=== PATIENT | female | born 1950 | race Caucasian/White ===

== ENCOUNTER 2017-12-04 23:25 | Emergency (ER) | payer MEDICARE, MEDICAID, SELFPAY ==
[2017-12-04 23:27] VITALS: BP 126/64; PULSE 73; RESP 15; TEMP 36.7; O2SAT 96; BMI 20.5
--- NOTE | 2017-12-04 23:40 | ED.DCSUM_ITS ---
History of Present Illness Chief Complaint: Back Informant: Patient Onset: Today Context: Gradual Onset Timing: Intermittent Quality: spasms Location: across low back Current Severity: Mild Maximum Severity: Severe Worsened by: bending over, certain movements Relieved by: rest/remaining still and waiting long enough, but not improved by meds Associated Symptoms: none -- no rad to LE, groin, abd. no weak/numbness/ tingling. no dizziness. Narrative: Long-standing history of back pain and degenerative changes in spine, similar pain to usual but worse and having muscle spasms. She states she has been doing a lot of activities lately, today before the worsening, she was lifting a heavy green out of an oven, making dinner. This seemed to make her back lock up on her and feel like muscle spasms. She took a Valium 5 mg but it did not help. Earlier in the day she took Tylenol, and some Tylenol PM tonight. She states she was at the chiropractor yesterday, they were more aggressive, doing rollers under her low back and her neck which she was also doing today. No new symptoms that she has never had. Prior similar symptoms: Yes Recent Illness/Hospitalization: No - Past Medical History (1) Chronic low back pain Status: Chronic Past Medical History - Allergies and Home Meds Allergies/Adverse Reactions: Allergies acetaminophen [From Vicodin] Adverse Reaction (Verified 12/04/17 23:27) Other hydrocodone [From Vicodin] Adverse Reaction (Verified 12/04/17 23:27) Other morphine Adverse Reaction (Verified 12/04/17 23:27) Other Primary Care Physician: Lyubov An MD [Primary Care Provider] - 3-5 Days if not improving Surgical History: - - arthroscopic surgery on the knee, tubal ligation Lives: Alone Smoking Status: Current some day smoker - Family History Maternal Family History: Reports: Cancer - mother of ovarian CA Review of Systems All systems negative except as indicated Gastrointestinal: Denies: Abdominal pain, Nausea, Vomiting, Diarrhea, - - bowel or bladder dysfunction Musculoskeletal: Reports: Back pain. Denies: Neck pain, Extremity Pain Skin: Denies: Rash Neurological: Denies: Headache, Weakness, Parasthesia, Numbness Physical Exam Vital Signs/Narrative: Vital Signs Temp Pulse Resp BP Pulse Ox 12/04/17 23:27 98.1 F 73 15 126/64 H 96 Inital Vital Signs reviewed: Yes General: Well nourished, Well developed, - - well-appearing, nad Head: Normocephalic, Atraumatic ENT: Moist mucous membranes, No rhinorrhea Neck: Supple, Nontender Cardiovascular: - - 2+/4 bilat symmetric DP pulses Abdomen: Soft, Nontender, Nondistended, Normal bowel sounds. Negative for: Pulsatile mass Back: Nontender, Normal Inspection - no rash, - - able to sit up/forward on her own w/o difficulty; some increased pain when she laid back against bed. Negative for: CVA tenderness, Spinal tenderness Extremities: Nontender - w/ negative SLR's while sitting, No edema Skin: Normal color, No rash Neurological: Alert, Oriented x3, Cranial nerves II-XII grossly intact, Normal Strength, Normal Sensation, Normal DTR Psychological: Normal affect Diagnostic/Tx/Re-eval - Medical Decision Making Her symptoms are clearly musculoskeletal in nature. She was initially given Toradol 15 mg IM along with Norflex 60 mg IM, she was still having intermittent spasms when she would try to get up so she was asking for something else. She was given Ativan 2 mg IM and on reevaluation things are improved. Follow-up as needed. ED Disposition - Plan for ED Patient: Disposition: Home or Assisted Living Chief Complaint: Back Diagnosis: Acute exacerbation of chronic low back pain Instructions: ED Spasm Back No Trauma Referrals: Lyubov An MD [Primary Care Provider] - 3-5 Days if not improving
[2017-12-04] MEDS: Orphenadrine 60 MG/2 ML Ampul IM (23:49)
[2017-12-04] MEDS: Ketorolac 15 MG/ML Vial IM (23:49)
[2017-12-05] MEDS: LORazepam 2 MG/ML Syringe IM (00:56)
[2017-12-05 01:24] VITALS: BP 121/72; PULSE 71; RESP 18; O2SAT 97
== END 2017-12-05 01:31 | disposition home or self-care (01) ==
PROVIDERS: Emergency Provider Emergency Medicine; Family Provider Internal Medicine; PCP Internal Medicine
DX: M54.5 Low back pain (principal); G89.29 Other chronic pain; F17.200 Nicotine dependence, unspecified, uncomplicated
CPT/HCPCS: 96372; 99284

== ENCOUNTER 2019-12-25 07:06 | Emergency (ER) | payer MEDICARE, SELFPAY ==
[2019-12-25 07:06] VITALS: BP 143/102; PULSE 104; RESP 18; TEMP 35.5; O2SAT 99; BMI 18.2
--- NOTE | 2019-12-25 07:29 | RAD_ITS ---
STUDY: X-RAY - RIGHT WRIST REASON FOR EXAM: Female, 69 years old. Pt fell in the bathtub TECHNIQUE: 3 view(s) of the wrist were obtained. COMPARISON: None. FINDINGS: There is diffuse demineralization of the osseous structures. Normal radiocarpal articulation. Normal distal radioulnar articulation. Normal carpal bones. Normal carpal articulations. Small calcific density distal to the ulnar styloid could be due to old injury. Normal carpometacarpal articulation of the thumb. Normal second through fifth carpometacarpal articulations. Normal visualized metacarpal bones. The soft tissue structures are unremarkable. RAD/Wrist min 3 Views IMPRESSION: Demineralization of the osseous structures. No demonstrated acute osseous injury. Electronically Signed: Senthil Reeves MD at 9:09 EDT Tel , Service support ,
--- NOTE | 2019-12-25 07:29 | RAD_ITS ---
STUDY: X-RAY - RIGHT KNEE REASON FOR EXAM: Female, 69 years old. Pt fell in the bathtub TECHNIQUE: 4 view(s) of the knee. COMPARISON: None. FINDINGS: There is demineralization of the visualized distal femur. There is demineralization of the tibia and fibula. Normal proximal tibiofibular articulation. There is no demonstrated fracture. Sclerotic lesion is seen in the distal femur likely due to bone infarcts. Normal medial femorotibial compartment. Normal lateral femorotibial compartment. There is mild degenerative arthrosis of the patellofemoral articulation. There is no demonstrated joint effusion. There is soft tissue swelling superior patella. RAD/Knee 4 or More Views IMPRESSION: Demineralization of the osseous structures. No demonstrated acute osseous injury. Electronically Signed: Senthil Reeves MD at 9:07 EDT Tel , Service support ,
--- NOTE | 2019-12-25 07:34 | ED.VIS.FALL ---
History of Present Illness Chief Complaint: Fall Informant: Patient Occurred: Today Mechanism/Context: Slip Usually ambulates: Walker Associated Symptoms: Negative for: Parasthesias, Loss of function, Inability to ambulate, Loss of consciousness Narrative: Patient is a 69 year-old female with history of chronic back pain presenting with right wrist pain after a fall. Patient was trying to get into a bathtub when she slipped. She try to catch herself with her right hand and now has pain in her right wrist. She states that she is had increased swelling of her right knee lately and it is been giving out on her. Patient is chronic lower extremity edema which is unchanged. She has associated shortness of breath or difficulty breathing. Patient denies any numbness or tingling. She denies any difficulty with oncology physician assistant strength of her hand. She not hit her head. She had no loss of consciousness. Past Medical History - Allergies and Home Meds Allergies/Adverse Reactions: Allergies acetaminophen [From Vicodin] Adverse Reaction (Verified 12/25/19 07:09) Other hydrocodone [From Vicodin] Adverse Reaction (Verified 12/25/19 07:09) Other morphine Adverse Reaction (Verified 12/25/19 07:09) Other Primary Care Physician: Lyubov An MD [Primary Care Provider] - Past Medical History: - - chronic back pain Surgical History: - - arthroscopic surgery on the knee, tubal ligation Lives: Alone Smoking Status: Current some day smoker - Family History Maternal Family History: Reports: Cancer - mother of ovarian CA Review of Systems General: Denies: Chills, Fever, Sweats Eyes: Denies: Visual changes - bilaterally, Diplopia ENT: Denies: Rhinorrhea, Sore throat Cardiovascular: Denies: Chest pain, Palpitations Respiratory: Denies: Dyspnea, Cough, Dyspnea on exertion Gastrointestinal: Denies: Abdominal pain, Nausea, Vomiting, Diarrhea, Melena, Hematochezia Genitourinary: Denies: Dysuria, Hematuria, Frequency Musculoskeletal: Reports: Back pain - chronic, Swelling, Extremity Pain - right wrist, right knee Skin: Denies: Rash, Wounds Neurological: Denies: Headache, Weakness, Numbness Physical Exam Vital Signs/Narrative: Vital Signs Temp Pulse Resp BP Pulse Ox 12/25/19 07:06 96 F L 104 H 18 143/102 H 99 Inital Vital Signs reviewed: Yes General: Well nourished, Well developed Head: Normocephalic, Atraumatic Eyes: Perrl, EOMI ENT: No trauma. Negative for: Nasal trauma, Nasal septal hematoma Neck: Nontender, Full ROM. Negative for: Spinal Tenderness, Paraspinal Tenderness Cardiovascular: Regular rate, Regular rhythm, No murmurs Respiratory: No distress, CTA bilaterally, Chest nontender Abdomen: Soft, Nontender, Nondistended, Normal bowel sounds Back: Nontender Extremeties: No obvious deformity. Patient has normal range of motion of the elbow and wrist however she does have pain with range of motion of the right wrist. She is some soft tissue swelling of the distal radius with associated tenderness to palpation. Normal oncology physician assistant strength and intrinsic and extrinsic strength of the hand. Right lower extremity, pelvis is stable. No hip pain with leg roll. Patient is ambulatory. She has some mild asymmetrical swelling of the right knee with associated effusion. She is normal range of motion. No overriding warmth or erythema. Bilateral 2+ pitting edema of the lower extremities. 2+ radial and 2+ DP pulses bilaterally Skin: Normal color, No rash, Trauma - Ecchymosis developing over right wrist, distal radius Neurological: Alert, Oriented x3, Cranial nerves II-XII grossly intact, Normal Strength, Normal Sensation Psychological: Normal affect Diagnostic/Tx/Re-eval Clinical Impression(s) from Imaging Studies Knee X-Ray 12/25/19 07:29 IMPRESSION: Demineralization of the osseous structures. No demonstrated acute osseous injury. Electronically Signed: Senthil Reeves MD at 9:07 EDT Tel , Service support , Wrist X-Ray 12/25/19 07:29 IMPRESSION: Demineralization of the osseous structures. No demonstrated acute osseous injury. Electronically Signed: Senthil Reeves MD at 9:09 EDT Tel , Service support , - Medical Decision Making Evaluated for right wrist pain after mechanical fall this morning. She not hit her head. No loss of consciousness. She does have some soft tissue ecchymosis but no deformity. X-ray shows osteopenia but no acute fracture. Patient is requesting a wrist splint which she is given. She is counseled on the risk of an occult fracture and if she still has pain she might need a repeat x-ray in 7 to 10 days. She is not have any snuffbox tenderness. Patient has chronic swelling and pain of her right knee however I did obtain x-ray which showed some mild degenerative changes. No acute fracture seen there. No concern for gout or septic joint. Patient is given orthopedics for outpatient follow-up. She is given Motrin for pain control in the ER. Patient is counseled on signs and symptoms requiring return to the emergency room. Patient verbalizes agreement and understand this plan. Patient discharged home in stable and improved condition. ED Disposition - Plan for ED Patient: Diagnosis: Fall, Contusion of right wrist, Right knee pain Instructions: ED Prevention Fall, ED SOFT TISSUE CONTUSION, ED Knee Pain [facility] Referrals: Lyubov An MD [Primary Care Provider] - Bill Mitchell DO [STAFF PHYSICIAN] -
[2019-12-25] MEDS: Acetaminophen 500 MG Tablet PO (07:37)
[2019-12-25] MEDS: Ibuprofen 600 MG Tablet PO (07:37)
[2019-12-25 09:47] VITALS: BP 118/69; PULSE 74; RESP 15; O2SAT 98
== END 2019-12-25 09:49 | disposition home or self-care (01) ==
PROVIDERS: Emergency Provider Emergency Medicine; PCP Internal Medicine
DX: S60.211A Contusion of right wrist, initial encounter (principal); M25.561 Pain in right knee; W18.2XXA Fall in (into) shower or empty bathtub, initial encounter; Y93.E1 Activity, personal bathing and showering; Y92.002 Bathroom of unspecified non-institutional (private) residence as the place of occurrence of the external cause; Y99.8 Other external cause status
CPT/HCPCS: 73110; 73564; 99283

== ENCOUNTER 2024-07-18 10:41 | Inpatient (IN) | payer MEDICARE, MEDICAID, SELFPAY ==
[2024-07-18 10:41] VITALS: PULSE 116
[2024-07-18 10:42] VITALS: BP 136/73; PULSE 115; RESP 14; TEMP 36.4; O2SAT 98
[2024-07-18 10:43] VITALS: BMI 17.8
--- NOTE | 2024-07-18 11:14 | RAD_ITS ---
PROCEDURE: Right hip three-view 07/18/2024 REASON FOR EXAM: R GROIN PAIN TECHNIQUE: AP pelvis, AP frontal view of the right hip and frog-leg right hip radiographic images are obtained. COMPARISON: None. FINDINGS: Bones: Femoral neck fracture seen with medial angulation of the distal fracture fragment. No dislocation. Near the pubic symphysis there is a fracture of the superior pubic ramus. Joints: No dislocation Soft tissues: No appreciable soft tissue findings Other: RAD/HIP, UNI W/ Pelvis 2-3 Views IMPRESSION: Right hip fracture at femoral neck. Fracture of the superior right pubic ramus near the symphysis pubis. Reading Location: [facility]
[2024-07-18] MEDS: oxyCODONE 5 MG Tablet PO ×2 (11:19→17:47)
--- NOTE | 2024-07-18 11:20 | EDS_ITS ---
HPI History of Present Illness Chief Complaint: Lower Extremity Injury Narrative Narrative: Patient presenting today with pain to her right groin that she has had over the past three weeks. She reports that the pain makes it difficult to ambulate, pain is worsened with range of motion of her right hip and improved with rest. She denies any injury to the area or recent falls. She has been taking Tylenol with minimal relief of her pain. She denies fevers, chills, paresthesias, hist ory of blood clots and recent surgery/travel/immobilization. She denies having any chronic medical conditions. [facility] Medical History (Updated 07/18/24 @ 13:45 by GERRY Maya) Displaced fracture of right femoral neck Home Medications ?Medication ?Instructions ?Recorded ?Last Taken ?Type ibuprofen 200 mg capsule 200 mg PO Q6H PRN pain 01/0207/18/24 History vitamin D3 125 mcg (5,000 1 cap PO DAILY 07/18/24 Unkn own History unit)-vitamin K2 90 mcg capsule Allergy/AdvReac Type Severity Reaction Status Date / Time acetaminophen (From Vicodin) AdvReac Other Verified 07/18/24 10:41 hydrocodone (From Vicodin) AdvReac Other Verified 07/18/24 10:41 morphine AdvReac Other Verified 07/18/24 10:41 Family History Mother Cancer Father Emphysema/COPD Surgical History H/O tubal ligation H/O arthroscopic knee surgery Social History Smoking Status: Light Smoker (<10/day) Tobacco: How many years used: 52 alcohol intake: never what type of physical activity do you participate in: none ROS ROS ED Constitutional Constitutional ED: Denies chills or fever(s) Cardiovascular Cardiovascular: Denies chest pain Respiratory/Chest Respiratory/Chest: Denies dyspnea Gastrointestinal Gastrointestinal: Denies abdominal pain, nausea or vomiting Musculoskeletal Musculoskeletal: Reports arthralgias Integumentary Denies rash Neurologic Neurologic: Denies paresthesias EXAM Physical Exam Const Vital Signs: 07/18/24 10:41 07/18/24 10:42 Temperature 97.6 F L Temperature Source Temporal Pulse Rate 116 H 115 H Respiratory Rate 14 Blood Pressure 136/73 H Blood Pressure Mean 94 Pulse Ox 98 Oxygen Delivery Method Room Air Positive well nourished, well developed and no apparent distress General Appearance ED: well developed HEENT Reports normocephalic and head/scalp atraumatic Mouth ED: Yes moist mucous membranes normal Eyes PERRL and EOMs intact bilaterally Neck full ROM and supple Chest Wall inspection of chest normal Resp normal respiratory effort and clear to auscultation bilaterally Cardio regular rate and regular rhythm Back/Spine normal ROM and normal to inspection Extremity normal to inspection Extremity Narrative: Limited active range of motion to the right hip due to pain to the right groin, pain to palpation to the right groin, no overlying bruising or rash, right DP pulse 2+, good cap refill, sensation intact Neuro oriented x3, CN's II-XII intact bilaterally, moves all extremities, no focal motor deficits and no sensory deficits noted Sensorium / Orientation: awake and alert Psych mental status grossly normal and thought process normal Skin no rashes or lesions noted and no wounds MDM MDM MDM Narrative Medical decision making narrative: Patient presenting today with pain to her right groin she has had over the past few weeks. She denies any injury to the area. She has pain to her right groin with range of motion of her right hip. X-ray of the pelvis/right hip obtained and shows a fracture at the right femoral neck and superior right pubic ramus. I spoke with Dr. Vargas, this will need surgically corrected and she will require admission to the hospital. I spoke with Dr. Jama, he recommended obtaining a CT scan of the right hip due to her previous history of rectal cancer to assess for pathological fracture. Patient will be admitted in stable condition. Lab Data Attestation: I reviewed the patient's lab results. Labs: Laboratory Results - last 24 hr 07/18/24 13:14 WBC 7.3 RBC 4.39 Hgb 13.5 Hct 40.1 MCV 91.3 MCH 30.8 MCHC 33.7 RDW Std Deviation 47.5 H RDW Coeff of Abby 14.1 Plt Count 273 MPV 10.3 Immature Gran % (Auto) 0.300 Neut % (Auto) 70.5 H Lymph % (Auto) 21.8 [place] % (Auto) 7.0 Eos % (Auto) 0.0 Baso % (Auto) 0.4 Absolute Neuts (auto) 5.2 Absolute Lymphs (auto) 1.60 Nucleated RBC % 0 Radiography X-Ray: Read by ED Physician Diagnostic Testing: Clinical Impression(s) from Imaging Studies Hip/Pelvis X-Ray 07/18/24 11:14 IMPRESSION: Right hip fracture at femoral neck. Fracture of the superior right pubic ramus near the symphysis pubis. Reading [facility] Discharge Plan Triage Chief Complaint: Lower Extremity Injury ED Midlevel Provider: Heena Rosas ED Provider: Fernandez Randhawa Dx/Rx/DC Orders Clinical Impression: Fracture of right hip, Closed fracture of right superior pubic ramus Prescriptions: No Action ibuprofen 200 mg capsule 200 mg PO Q6H PRN (Reason: pain) vitamin D3-vitamin K2 125-90 mcg capsule 1 cap PO DAILY Primary Care Provider: Lyubov An Referrals: Lyubov An MD [Primary Care Provider] - Print Language: Tamazight Disposition Disposition: Acute Care Hospital [facility]
--- NOTE | 2024-07-18 13:06 | CON.PCM.OR_ITS ---
HPI Consult Data Date of Consult: 07/18/24 HPI Narrative HPI Narrative: MONTSERRAT PAULA, is a 74 F who presents with a right femoral neck fracture. [facility] Medical History (Updated 07/18/24 @ 13:08 by Robin Vargas MD) Displaced fracture of right femoral neck Home Medications ?Medication ?Instructions ?Recorded ?Last Taken ?Type ibuprofen 200 mg capsule 200 mg PO Q6H PRN 01/03/20 U nknown History Allergy/AdvReac Type Severity Reaction Status Date / Time acetaminophen (From Vicodin) AdvReac Other Verified 07/18/24 10:41 hydrocodone (From Vicodin) AdvReac Other Verified 07/18/24 10:41 morphine AdvReac Other Verified 07/18/24 10:41 Family History Mother Cancer Father Emphysema/COPD Surgical History H/O tubal ligation H/O arthroscopic knee surgery Social History Smoking Status: Light Smoker (<10/day) Tobacco: How many years used: 52 alcohol intake: never what type of physical activity do you participate in: none Vital Signs Vital Signs Vital Signs: 07/18/24 10:41 07/18/24 10:42 Temperature 97.6 F L Temperature Source Temporal Pulse Rate 116 H 115 H Respiratory Rate 14 Blood Pressure 136/73 H Blood Pressure Mean 94 Pulse Ox 98 Oxygen Delivery Method Room Air Weight Weight: 113 lb 15.664 oz Body Mass Index (BMI) 17.8 Imaging Radiology Impression Hip/Pelvis X-Ray 07/18/24 11:14 IMPRESSION: Right hip fracture at femoral neck. Fracture of the superior right pubic ramus near the symphysis pubis. Reading [facility] Assessment & Plan Assessment/Plan (1) Displaced fracture of right femoral neck: PLAN: 74 F with right femoral neck fracture. Await admission and clearance from hospitalist to proceed with surgical intervention.
--- NOTE | 2024-07-18 13:11 | CT_ITS ---
PROCEDURE: EXTREMITY LOWER WITHOUT CONTRA 07/18/2024 REASON FOR EXAM: R HIP FRACTURE TECHNIQUE: Axial CT images of the right lower extremity obtained with intravenous contrast. Coronal and Sagittal reconstruction series were provided. CONTRAST: Isovue-300 VOLUME: 100mL Gauge IV One or more dose reduction techniques were used (e.g., Automated exposure control, adjustment of the mA and/or kV according to patient size, use of iterative reconstruction technique). RADIATION DOSE SUMMARY: CTDlvol: 12.73 mGy DLP: 457.73 mGycm COMPARISON: Right hip radiographs 07/18/2024 FINDINGS: Bones: Right femoral neck fracture seen. There is medial angulation of the distal major fracture fragment. The relationship between the femoral head and acetabulum is intact. No dislocation. There is variation in the appearance of the median superior pubic ramus. This could be deformity from chronic healed fracture or simply degenerative change. The right inferior pubic ramus is intact. Soft Tissues: Small joint effusion. Soft tissues are otherwise unremarkable. CT/Extremity Lower without Contra IMPRESSION: Fracture of the right femoral neck as above. Deviation from the normal appearance of the right superior pubic is not felt to represent a fracture. Reading Location: [facility]
[2024-07-18 13:26] LABS: Absolute Neutrophil Count 5.2 X10^3/uL (2.0-7.7); Basophil# 0.03 X10^3/uL; Basophil% 0.4 % (0-1); Hematocrit 40.1 % (37-47); Hemoglobin 13.5 g/dL (12.0-15.0); Lymphocyte % 21.8 % (19-41); Mean Corp Hgb Conc 33.7 g/dL (32-36); Mean Corpuscular Hgb 30.8 pg (27.0-32.0); Mean Corpuscular Volume 91.3 fL (81-99); Mean Platelet Vol. 10.3 fl (6.2-12.0); Monocyte# 0.51 X10^3/uL; NRBC Flagged by Analyzer 0 % (0-5); Neutrophil # 5.17 X10^3/uL (2.7-7.7); Neutrophil % 70.5 % (47-70); Platelet Count 273 K/mm3 (150-450); RBC Distribution Width CV 14.1 % (11.6-14.6); RBC Distribution Width SD 47.5 fl (35.1-43.9); Red Blood Count 4.39 M/mm3 (4.2-5.4); White Blood Count 7.3 K/mm3 (4.4-11.0)
[2024-07-18 13:52] VITALS: BP 140/75; PULSE 87; RESP 12; TEMP 36.5; O2SAT 99
--- NOTE | 2024-07-18 14:13 | CONS.ORTHO ---
HPI Consult Data Date of Consult: 07/18/24 HPI Narrative HPI Narrative: MONTSERRAT PAULA, is a 74 F who presents with a right hip femoral neck fracture. Patient described increasing difficulty ambulating and progressive groin pain on the right side. Normally walks with rollator. Here with granddaughter as well as her power of consumer attorney.. The patient lives alone. 10 years ago had radiation treatment. [facility] Medical History (Updated 07/18/24 @ 13:45 by GERRY Maya) Displaced fracture of right femoral neck Home Medications ?Medication ?Instructions ?Recorded ?Last Taken ?Type ibuprofen 200 mg capsule 200 mg PO Q6H PRN pain 01/03/20 07/18/24 History vitamin D3 125 mcg (5,000 1 cap PO DAILY 07/18/24 Unknown History unit)-vitamin K2 90 mcg capsule Allergy/AdvReac Type Severity Reaction Status Date / Time acetaminophen (From Vicodin) AdvReac Other Verified 07/18/24 10:41 hydrocodone (From Vicodin) AdvReac Other Verified 07/18/24 10:41 morphine AdvReac Other Verified 07/18/24 10:41 Family History Mother Cancer Father Emphysema/COPD Surgical History H/O tubal ligation H/O arthroscopic knee surgery Social History Smoking Status: Light Smoker (<10/day) Tobacco: How many years used: 52 alcohol intake: never what type of physical activity do you participate in: none Vital Signs Vital Signs Vital Signs: 07/18/24 10:41 07/18/24 10:42 07/18/24 13:52 Temperature 97.6 F L 97.7 F L Temperature Source Temporal Pulse Rate 116 H 115 H 87 Respiratory Rate 14 12 Blood Pressure 136/73 H 140/75 H Blood Pressure Mean 94 96 Pulse Ox 98 99 Oxygen Delivery Method Room Air Weight Weight: 113 lb 15.664 oz Body Mass Index (BMI) 17.8 Physical Exam Const alert and oriented x3 Constitutional Narrative: Quite talkative no apparent distress and making a few jokes. Extremity Extremity Narrative: Closed neurovascularly intact shortened externally rotated right lower extremity. Thigh is soft. Normal sensation throughout the foot good dorsalis pedis pulse. Able to wiggle the toes dorsiflex and plantarflex the foot. Lab / Micro Data 07/18/24 13:14 07/18/24 13:14 Labs: Laboratory Results - last 24 hr 07/18/24 13:14: WBC 7.3, RBC 4.39, Hgb 13.5, Hct 40.1, MCV 91.3, MCH 30.8, MCHC 33.7, RDW Std Deviation 47.5 H, RDW Coeff of Abby 14.1, Plt Count 273, MPV 10.3, Immature Gran % (Auto) 0.300, Neut % (Auto) 70.5 H, Lymph % (Auto) 21.8, [place] % (Auto) 7.0, Eos % (Auto) 0.0, Baso % (Auto) 0.4, Absolute Neuts (auto) 5.2, Absolute Lymphs (auto) 1.60, Nucleated RBC % 0 Imaging Radiology Impression Hip/Pelvis X-Ray 07/18/24 11:14 IMPRESSION: Right hip fracture at femoral neck. Fracture of the superior right pubic ramus near the symphysis pubis. Reading Location: [facility] [place] type III displaced femoral neck fracture on the right side Assessment & Plan Assessment/Plan (1) Closed fracture of right superior pubic ramus: PLAN: 74 yr F with a right displaced femoral neck fracture. Recommend surgery for this although nonoperative treatment is an option this is typically high risk. Patient wished to proceed with surgery. Likely tomorrow after clearance. Specific risks include fracture instability dislocation VTE and other risks. The patient understands wishes to proceed, she signed consent, right hip marked. My typical treatment for this would be a right hip cemented hemiarthroplasty. Low risk of instability or dislocation as well as good long-term outcomes with cemented stem. Right hip marked the patient understands signed the consent form for surgery no further questions or concerns. Pros and cons risks and benefits were discussed with the patient including but not limited to infection, pain, stiffness, bleeding, damage to surrounding structures, neurovascular injury, recurrence or retear, failure or wear of hardware or fixation, instability, fracture, deep vein thrombosis and pulmonary embolism, anesthetic risks, , patient dissatisfaction, need for further surgery and other risks. Patient understood and wished to proceed with surgery, and signed the informed consent documentation.
[2024-07-18 14:16] LABS: Anion Gap 14 (5-15); BUN 13 mg/dL (4-19); BUN/Creat Ratio 17.7 RATIO (10-20); Calcium,Total 9.8 mg/dL (7.6-11.0); Chloride 105 mmol/L (98-108); Creatinine, Serum 0.73 mg/dL (0.70-1.20); EST Glomerular Filtration Rate 86 (>60); Estimated Creatinine Clearance 48.83 ml/min (50-250); Glucose 93 mg/dL (70-99); Sodium Level 141 mmol/L (133-145)
[2024-07-18 15:18] VITALS: BMI 16.5
--- NOTE | 2024-07-18 15:18 | HP.PCM.HOS_ITS ---
HPI - General General Date of Admission: 07/18/24 HPI Narrative MONTSERRAT PAULA, is a 74 F who presents to the hospital with right hip pain. She says it has been hurting for about a month and she denies any trauma to the area. She has been having some difficulty walking but has been managing but the pain today became significant enough the family asked her to come to the hospital. She was found to have a right hip fracture with right sided pubic rami fractures as well. Orthopedic surgery was consulted who will take to the OR for repair. She does have a history of anal cancer and was undergoing radiation with the [facility] back in 2014, she says that she stopped because the treatments were killing her and that she figured she could do fine without it. A CT scan was obtained and pending to evaluate for possibly lytic lesions to see if this is a potential pathologic fracture. She does also appear, on x-ray, to be osteopenic so we will obtain a vitamin D level as well. She does not have a PCP and is unsure if she is ever had a DEXA scan. [facility] Medical History (Updated 07/18/24 @ 13:45 by GERRY Maya) Displaced fracture of right femoral neck Home Medications ?Medication ?Instructions ?Recorded ?Last Taken ?Type ibuprofen 200 mg capsule 200 mg PO Q6H PRN pain 01/0207/18/24 History vitamin D3 125 mcg (5,000 1 cap PO DAILY 07/18/24 Unkn own History unit)-vitamin K2 90 mcg capsule Allergy/AdvReac Type Severity Reaction Status Date / Time acetaminophen (From Vicodin) AdvReac Other Verified 07/18/24 10:41 hydrocodone (From Vicodin) AdvReac Other Verified 07/18/24 10:41 morphine AdvReac Other Verified 07/18/24 10:41 Family History Mother Cancer Father Emphysema/COPD Surgical History H/O tubal ligation H/O arthroscopic knee surgery Social History Smoking Status: Light Smoker (<10/day) Tobacco: How many years used: 52 alcohol intake: never what type of physical activity do you participate in: none ROS Constitutional Constitutional: Denies chills, fatigue, fever(s) or malaise Eyes Eyes: Denies blurry vision ENT HEENT: Denies headache(s) or nasal discharge Cardiovascular Cardiovascular: Denies chest pain, dyspnea on exertion or syncope Respiratory/Chest Respiratory/Chest: Denies cough, shortness of breath at rest or shortness of breath with exertion Gastrointestinal Gastrointestinal: Denies constipation, diarrhea, nausea or vomiting Genitourinary Genitourinary: Denies dysuria Musculoskeletal Musculoskeletal: Reports joint pain Neurologic Neurologic: Denies focal weakness, numbness or tremor(s) Psychiatric Psychiatric: Denies anxiety or depression Vital Signs Vital Signs Vital Signs: 07/18/24 10:41 07/18/24 10:42 07/18/24 13:52 Temperature 97.6 F L 97.7 F L Temperature Source Temporal Pulse Rate 116 H 115 H 87 Respiratory Rate 14 12 Blood Pressure 136/73 H 140/75 H Blood Pressure Mean 94 96 Pulse Ox 98 99 Oxygen Delivery Method Room Air Weight Weight: 113 lb 15.664 oz Body Mass Index (BMI) 17.8 Physical Exam Narrative General: Alert, Oriented x3, Cooperative, No apparent distress, temporal wasting, very thin HEENT: Atraumatic, PERRLA, EOMI, Normocephalic Oral: Moist Mucosa Neck: Supple, No JVD Lungs: Clear to auscultation, Normal air movement, No rhonchi, No wheeze, No rales Cardiovascular: Regular rate, Regular Rhythm, Normal S1, Normal S2, No murmurs Abdomen: Soft, Non Tender, Non-Distended, No Hepato-splenomegaly Extremities: No edema, Capillary Refill Less than 3 Seconds Skin: No rashes, No breakdown Musculoskeletal: Tenderness to right hip palpation, her right leg is shorter than the left Neurological: No focal neurological deficits, Motor Exam 5/5 strength throughout except for her right lower extremity which was not tested due to fracture, Sensory exam intact to light touch and pain Psych/Mental Status: Normal Affect, Appropriate Results Lab / Micro Data 07/18/24 13:14 07/18/24 13:14 Labs: Laboratory Results - last 24 hr 07/18/24 13:14: WBC 7.3, RBC 4.39, Hgb 13.5, Hct 40.1, MCV 91.3, MCH 30.8, MCHC 33.7, RDW Std Deviation 47.5 H, RDW Coeff of Abby 14.1, Plt Count 273, MPV 10.3, Immature Gran % (Auto) 0.300, Neut % (Auto) 70.5 H, Lymph % (Auto) 21.8, [place] % (Auto) 7.0, Eos % (Auto) 0.0, Baso % (Auto) 0.4, Absolute Neuts (auto) 5.2, Absolute Lymphs (auto) 1.60, Nucleated RBC % 0, Sodium 141, Potassium 4.0, Chloride 105, Carbon Dioxide 21.0, Anion Gap 14, BUN 13, Creatinine 0.73, Estim Creat Clear Calc 48.83 L, Est GFR (MDRD) Non-Af 86, BUN/Creatinine Ratio 17.7, Glucose 93, Calcium 9.8 Imaging Radiology Impression Hip/Pelvis X-Ray 07/18/24 11:14 IMPRESSION: Right hip fracture at femoral neck. Fracture of the superior right pubic ramus near the symphysis pubis. [facility] Assessment & Plan Assessment/Plan (1) Closed fracture of right superior pubic ramus: (2) Displaced fracture of right femoral neck: PLAN: Plan 1. Nontraumatic fracture of the right femoral neck ? CT pending of her right lower extremity to evaluate for the possibility of lytic lesions or pathologic fracture ? Continue with pain management ? N.p.o. after midnight ? Plan for orthopedic intervention in the morning ? 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 Given the appearance on x-ray and how osteopenic she appears, will obtain a vitamin D, calcium level is normal at 9.8 DVT: Lovenox 75 minutes was spent on direct patient care, including documentation as well as chart review and collaboration with colleagues Charges/Coding Visit Charges Inpatient E&M: 15824 Init Hosp L3
[2024-07-18 15:34] VITALS: BP 143/85; PULSE 74; RESP 18; TEMP 37.1; O2SAT 98
[2024-07-18 16:50] LABS: Vitamin D,25 Hydroxy 83.7 ng/mL (30-100)
[2024-07-18] MEDS: Acetaminophen 500 MG Tablet 1000 MG PO (17:47)
[2024-07-18 20:27] VITALS: BP 98/61; PULSE 71; RESP 16; TEMP 36.8; O2SAT 95
[2024-07-19] VITALS (16 sets, daily range): BP systolic 102–145; BP diastolic 43–86; PULSE 80–101; RESP 14–20; TEMP 36.1–36.8; O2SAT 94–100; BMI 16.9
[2024-07-19] MEDS: oxyCODONE 5 MG Tablet PO ×2 (00:04→20:56)
[2024-07-19 04:49] LABS: Absolute Lymphocyte Count 1.75 X10^3/uL (0.83-4.51); Absolute Neutrophil Count 2.7 X10^3/uL (2.0-7.7); Basophil# 0.02 X10^3/uL; Basophil% 0.4 % (0-1); Hemoglobin 11.6 g/dL (12.0-15.0); Lymphocyte # 1.75 X10^3/ul (0.83-4.51); Lymphocyte % 35.1 % (19-41); Mean Corp Hgb Conc 33.1 g/dL (32-36); Mean Corpuscular Hgb 30.5 pg (27.0-32.0); Mean Corpuscular Volume 92.1 fL (81-99); Mean Platelet Vol. 10.4 fl (6.2-12.0); NRBC Flagged by Analyzer 0 % (0-5); Neutrophil % 54.3 % (47-70); Platelet Count 236 K/mm3 (150-450); RBC Distribution Width CV 14.4 % (11.6-14.6); RBC Distribution Width SD 48.5 fl (35.1-43.9)
[2024-07-19 05:12] LABS: Anion Gap 11 (5-15); BUN 10 mg/dL (4-19); BUN/Creat Ratio 16.8 RATIO (10-20); Calcium,Total 9.1 mg/dL (7.6-11.0); Carbon Dioxide 21.4 mmol/L (21.0-32.0); Chloride 109 mmol/L (98-108); Creatinine, Serum 0.59 mg/dL (0.70-1.20); EST Glomerular Filtration Rate 93 (>60); Estimated Creatinine Clearance 45.33 ml/min (50-250); Glucose 92 mg/dL (70-99); Potassium 3.9 mmol/L (3.3-5.1); Sodium Level 142 mmol/L (133-145)
--- NOTE | 2024-07-19 06:00 | EKG12_ITS ---
Test Reason : PRE-OP Blood Pressure : */* mmHG Vent. Rate : 63 BPM Atrial Rate : 63 BPM P-R Int : 140 ms QRS Dur : 94 ms QT Int : 400 ms P-R-T Axes : * 144 145 degrees QTcB Int : 409 ms Normal sinus rhythm Low voltage QRS Left posterior fascicular block Nonspecific ST and T wave abnormality Abnormal ECG When compared with ECG of 18-Oct-2016 13:40, Left posterior fascicular block is now Present Confirmed by ROBERT CARDOZA, MAURICE ([id number]), primer expeditor and drier BLANK SAMS ([id number]) on 07/19/2024 11:44:42 AM Referred By: VALERIE Confirmed By: MAURICE JONES MD
--- NOTE | 2024-07-19 09:53 | CASEMGMT ---
PEPITO GUTIERREZ Assessment Face to Face with patient for initial transition planning/care coordination assessment. PEPITO GUTIERREZ introduced self and role at [facility], pt voices understanding. Pt is A&Ox4 and is resting comfortably in bed and is calm. Care providers, pharmacy, and demographics verified. Admitting dx: Right Hip Fx LACE Strata: 2 PCP: Lyubov An Specialists: Denies. Mollison with Ortho is consulted currently Preferred Pharmacy: [facility] [place] Insurance: [facility] A/B, [facility] Prescription Benefit: Yes LNOK: Lucian Tee ([facility]) Living Arrangements: Pt lives alone on the 3rd level of an apartment complex with an elevator ADLs/IADLs: Reports independent at baseline. Transportation: Self, family. Denies concerns DME: Rollator x 2. Denies further DME concerns HHC/SNF: Denies history. CM and SW to follow for needs Pt?s goal: Return to PLOF Plan: TBD. Anticipate SNF vs HHC. Surgery is scheduled for noon today. PT to evaluate subsequently. At this time, pt would like to wait and see how she does to help solidify DC plans. CM and SW to follow for HH or SNF needs. Pt states that she is agreeable with this plan and denies further questions or concerns at this time. Mireya Pierson RN, CM
[2024-07-19] MEDS: 0.9% Saline Lock 10 ML Syringe IV (10:01)
--- NOTE | 2024-07-19 11:06 | PCM.PRE.AN2 ---
ASA Classification* ASA Classification ASA Classification: 2 Assessment & Plan Anesthesia* Anesthesia Assessment Anesthesia Assessment: Discussed sedation and/or anesthesia options, risks, benefits, and alternatives with patient/parents/legal guardian/POA. Questions invited. The patient/parents/legal guardian/POA seems to understand and agrees to proceed with anesthesia plan. Reviewed the physical assessment, medical history, allergy history and patient home medications list prior to surgery/procedure/anesthetic and documented any changes. Performed airway and anesthesia risk assessments. Anesthesia Type Anesthesia Type: General Anesthesia Focused Assessment* Temperature: 98.2 F Pulse Rate: 80 Blood Pressure: 114/43 Respiratory Rate: 18 Pulse Ox: 97 Airway Assessment Mouth opens: >3 cm Mallampati Score: II Focused Labs Anesthesia Preop lab: CBC WBC 5.0 K/mm3 (4.4-11.0) 07/19/24 04:06 07/19/24 RBC 3.80 M/mm3 (4.2-5.4) L 07/19/24 04:06 07/19/24 Hgb 11.6 g/dL (12.0-15.0) L 07/19/24 04:06 07/19/24 Hct 35.0 % (37-47) L 07/19/24 04:06 07/19/24 Plt Count 236 K/mm3 (150-450) 07/19/24 04:06 07/19/24 CHEMISTRY Potassium 3.9 mmol/L (3.3-5.1) 07/19/24 04:06 07/19/24 Sodium 142 mmol/L (133-145) 07/19/24 04:06 07/19/24 Magnesium 2.0 mg/dL (1.8-2.4) 08/22/14 05:28 08/22/14 Phosphorus 3.5 mg/dL (2.5-4.9) 08/22/14 05:28 08/22/14 BUN 10 mg/dL (4-19) 07/19/24 04:06 07/19/24 Creatinine 0.59 mg/dL (0.70-1.20) L 07/19/24 04:06 07/19/24 Glucose 92 mg/dL (70-99) 07/19/24 04:06 07/19/24 COAG Pre-Assessment Diagnosis/Proposed Procedure Planned Operative Procedure(s): Hemiarthroplasty right hip Anesthesia History 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 When Was Last Pacemaker Check QUESTION #4 FULL TEXT: You/Your Family Experience fever (hyperthermia) with Anesthesia Last Oral Intake Last Oral intake: Last Oral Intake NPO since 00:00 07/19/24 09:20 Meds taken in AM with sips of water? Meds patient instructed to take am of surgery PONV PONV - canvas goods maker: PONV - canvas goods maker Female HX of Motion Sickness HX of N/V After Surgery Non-Smoker Duration of Surgery greater than 60 minutes Number of Risk Factors PONV Score Height & Weight Height & Weight: Anesthesia: Height & Weight Height 5 ft 7 in 07/19/24 09:20 Weight: 49 kg 07/19/24 09:20 Body Mass Index (BMI) 16.9 07/19/24 09:20 Respiratory Assessment Respiratory Assessment - canvas goods maker: Respiratory Tract Infection Hx - canvas goods maker Hx Respiratory Tract Infection No 07/19/24 05:49 STOP Sleep Apnea STOP Sleep Apnea - canvas goods maker: STOP Sleep Apnea - canvas goods maker Hx Hypertension No 07/18/24 15:10 Hx Sleep Apnea Yes: no sleep study done 07/18/24 15:10 CPAP No 07/18/24 15:10 BIPAP No 07/18/24 15:10 Do you snore loudly (louder No 07/18/24 15:10 than talking or can be heard Do you often feel tired/ No 07/18/24 15:10 fatigued/ sleepy during daytime? Has anyone observed you stop No 07/18/24 15:10 breathing during sleep? STOP Results Positive 07/18/24 15:10 QUESTION #5 FULL TEXT : Do you snore loudly (louder than talking or can be heard through closed doors)? Tobacco Use History Tobacco Use History - canvas goods maker: Tobacco Use History - canvas goods maker Tobacco Use Smoking Status Light Smoker (<10/day) 07/18/24 16:06 Hx Tobacco Use Yes 07/18/24 15:10 Years Smoking Packs Smoked per Day Smoking Cessation Date was within the last 15 years Hx Smoking Cessation Date Hx Smoking Cessation No 07/18/24 15:10 Counseling Hematologic Medial History Hematologic Hx - canvas goods maker: Hematologic Medical Hx - scheduling coordinator Hx of Blood Transfusion No 07/18/24 15:10 Hx of Transfusion in last 3 No 07/18/24 15:10 Months Date of Last Transfusion (if within last 3 months) Ever experience any problems No 07/18/24 15:10 with transfusion(s)? Specify any problems Hx of Preganancy in last 3 No 07/18/24 15:10 Months Nurse Filling Out Transfusion RKARPER 07/18/24 15:10 & Questions: Date: 07/18/24 07/18/24 15:10 Time: 15:13 07/18/24 15:10 Patient unable to answer at this time (ie. confused, unrespo /Reproduction History /Reproductive History - canvas goods maker: /Reproductive Hx- canvas goods maker Hx Now No 07/19/24 05:49 Gestational Age (in weeks): EDC: Hx Hx Para Hx Section SAB Active Medications Active Medications: Current Medications Generic Name Dose Route Start Last Admin Trade Name Freq PRN Reason Stop Dose Admin Acetaminophen 1,000 mg 07/18/24 17:40 07/19/24 05:50 Acetaminophen 500 Mg Tablet PO Not Given Q8 KATIE Enoxaparin Sodium 40 mg 07/19/24 10:00 07/19/24 09:16 Enoxaparin 40 Mg/0.4 Ml Syringe SC Not Given DAILY KATIE Sodium Chloride 100 mls @ 15 mls/hr 07/18/24 15:17 IV .Q6H40M PRN SALINE FLUSH Sodium Chloride 100 mls @ 15 mls/hr 07/18/24 15:17 IV .Q6H40M PRN Saline Flush Sodium Chloride 100 mls @ 15 mls/hr 07/18/24 15:17 IV .Q6H40M PRN Additional IVPB Infusion Morphine Sulfate 2 - 4 mg 07/18/24 15:03 Morphine 2 Mg/Ml Syringe IV Q3H PRN PRN Pain Score 6-10 Morphine Sulfate 2 - 4 mg 07/18/24 15:21 Morphine 4 Mg/Ml Syringe IV Q3H PRN PRN Pain Score 6-10 Ondansetron HCl 4 mg 07/18/24 15:03 Ondansetron 4 Mg/2 Ml Vial IV Q8H PRN PRN NAUSEA/VOMITING Oxycodone HCl 5 mg 07/18/24 15:03 07/19/24 00:04 Oxycodone 5 Mg Tablet PO 5 mg Q4H PRN PRN Administration Pain Score 4-10 Sodium Chloride 10 - 40 ml 07/18/24 15:17 07/19/24 10:01 0.9% Saline Lock 10 Ml Syringe IV 20 ml UD PRN Administration SALINE FLUSH PFSH Medical History Displaced fracture of right femoral neck Home Medications ?Medication ?Instructions ?Recorded ?Last Taken ?Type ibuprofen 200 mg capsule 200 mg PO Q6H PRN pain 01/03/20 07/18/24 History vitamin D3 125 mcg (5,000 1 cap PO DAILY 07/18/24 Unknown History unit)-vitamin K2 90 mcg capsule cod liver oil 15 ml PO DAILY SUPPLEMENT 07/19/24 Unknown History milk thistle 150 mg capsule 150 mg PO DAILY SUPPLEMENT 07/19/24 Unknown History multivitamin 1 tab PO DAILY SUPPLEMENT 07/19/24 Unknown History Allergy/AdvReac Type Severity Reaction Status Date / Time acetaminophen (From Vicodin) AdvReac Other Verified 07/18/24 10:41 avocado (avocodo) AdvReac Vomiting Verified 07/19/24 10:00 hydrocodone (From Vicodin) AdvReac Other Verified 07/18/24 10:41 morphine AdvReac Other Verified 07/18/24 10:41 Family History Mother Cancer Father Emphysema/COPD Surgical History H/O tubal ligation H/O arthroscopic knee surgery Social History Smoking Status: Light Smoker (<10/day) Tobacco: How many years used: 52 alcohol intake: never what type of physical activity do you participate in: none Review of Systems (Anesthesia) ROS Narrative System reviewed and no additional complaints, except as documented.
[2024-07-19] MEDS: 0.9% Normal Saline (1000mL) 1,000 ML 15 ML IV (11:12)
--- NOTE | 2024-07-19 11:59 | PN.ORTHO_ITS ---
Subjective Subjective Doing well, no further concerns. Hungry. OK to proceed with surgery. Objective Data Objective Data Vital Signs: Vital Signs Temp Pulse Resp BP Pulse Ox O2 Del Method 98.2 F 80 18 114/43 L 97 Room Air 07/19/24 11:07 07/19/24 11:07 07/19/24 11:07 07/19/24 11:07 07/19/24 11:07 07/19/24 09:30 Oxygen Delivery Method Room Air Weight: 108 lb 0.424 oz Body Mass Index (BMI) 16.9 Intake & Output: Intake and Output for Last 24 Hours 07/17/24 07/18/24 07/19/24 23:59 23:59 23:59 Intake Total 300 / 300 Balance 300 / 300 Lab / Micro Data 07/19/24 04:06 07/19/24 04:06 Labs: Laboratory Results - last 24 hr 07/18/24 13:14: WBC 7.3, RBC 4.39, Hgb 13.5, Hct 40.1, MCV 91.3, MCH 30.8, MCHC 33.7, RDW Std Deviation 47.5 H, RDW Coeff of Abby 14.1, Plt Count 273, MPV 10.3, Immature Gran % (Auto) 0.300, Neut % (Auto) 70.5 H, Lymph % (Auto) 21.8, [place] % (Auto) 7.0, Eos % (Auto) 0.0, Baso % (Auto) 0.4, Absolute Neuts (auto) 5.2, Absolute Lymphs (auto) 1.60, Nucleated RBC % 0, Sodium 141, Potassium 4.0, Chloride 105, Carbon Dioxide 21.0, Anion Gap 14, BUN 13, Creatinine 0.73, Estim Creat Clear Calc 48.83 L, Est GFR (MDRD) Non-Af 86, BUN/Creatinine Ratio 17.7, Glucose 93, Calcium 9.8, Vitamin D 25-Hydroxy 83.7 07/19/24 04:06: WBC 5.0, RBC 3.80 L, Hgb 11.6 L, Hct 35.0 L, MCV 92.1, MCH 30.5, MCHC 33.1, RDW Std Deviation 48.5 H, RDW Coeff of Abby 14.4, Plt Count 236, MPV 10.4, Immature Gran % (Auto) 0.200, Neut % (Auto) 54.3, Lymph % (Auto) 35.1, [place] % (Auto) 10.0, Eos % (Auto) 0.0, Baso % (Auto) 0.4, Absolute Neuts (auto) 2.7, Absolute Lymphs (auto) 1.75, Nucleated RBC % 0, Sodium 142, Potassium 3.9, Chloride 109 H, Carbon Dioxide 21.4, Anion Gap 11, BUN 10, Creatinine 0.59 L, E stim Creat Clear Calc 45.33 L, Est GFR (MDRD) Non-Af 93, BUN/Creatinine Ratio 16.8, Glucose 92, Calcium 9.1, Blood Type O POSITIVE, Antibody Screen NEGATIVE Radiography Diagnostic Testing: Radiology Impression Hip/Pelvis X-Ray 07/18/24 11:14 IMPRESSION: Right hip fracture at femoral neck. Fracture of the superior right pubic ramus near the symphysis pubis. Reading Location: [facility] Lower Extremity CT 07/18/24 13:11 IMPRESSION: Fracture of the right femoral neck as above. Deviation from the normal appearance of the right superior pubic is not felt to represent a fracture. Reading Location: [facility] Assessment & Plan Assessment/Plan (1) Fracture of right hip: PLAN: Reviewed the CT - no sign of pathologic fracture. OK to proceed with R hip danika. plan for spinal. ok to proceed.
--- NOTE | 2024-07-19 12:00 | FEM_PTH ---
PATIENT: MONTSERRAT PAULA LOC: MS3 U#:[id number] AGE/SX: 74/F ROOM: [facility] RE07/18/[address]: Dr. oTnio Obrien MD : [id number] BED: 1 DIS: 07/21/2024 SPEC #: [id number] RECD: 07/20/24 09:22 STATUS: VANESSA MELISA #: [id number] MENDEL: 07/19/24 12:[address]: Robin Vargas DEPT: SURGICAL PATHOLOGY RECD BY: Kennedy Mccarthy ENTERED: 07/20/24 09:22 SP TYPE: FEM HEAD OTHR DR: MD Dr. Manuel Wharton MD Dr. Prakash Chand, MD Tissues: A - Femoral region, NOS Procedures: Decalcification bone/plaque Surgery Specimen Level V HEADER OPERATION: Hemiarthroplasty, hip posterior PRE-OP DIAGNOSIS: Fracture of right hip TISSUE SUBMITTED: A- Right femoral head MICROSCOPIC DIAGNOSIS A. Femoral head, right, fracture, hemiarthroplasty: * Necrosis and fracture site changes - see Comment. COMMENT The slides/images were reviewed in intradepartmental consultation by Dr Piero Palomino (bone and soft tissue pathology division, [facility]). MICROSCOPIC DESCRIPTION Slides are reviewed. GROSS DESCRIPTION A. Received in formalin in a container labeled with the patient's name, date of , and right femoral head is a 4.5 x 4.5 x 3.5 cm firm and oconnor femoral head. The resection margin is shaggy and hemorrhagic. The cortical surface is smooth and grossly unremarkable. The specimen is quadrisected to reveal firm, oconnor surfaces with hemorrhage towards the margin. There is a 0.9 x 0.7 x 0.5 cm pale oconnor-cobos, firm focus at one aspect, focally abutting the shaggy margin. No overt mass lesion is grossly recognized. Received in the same container are multiple firm and hemorrhagic fragments of bone measuring 5.2 x 3.7 x 2.7 cm in aggregate. Sectioning reveals unremarkable cut surfaces. Credit Department Manager sections: A1. Femoral head with separate bone fragments following decalcificationA2. Pale focus of bone following decalcification [facility] 07-20-2024 CPT:05011,55415
[2024-07-19] MEDS: Cefazolin 2 GM in Syringe IV ×2 (12:42→20:57)
[2024-07-19] MEDS: TXA 1000mg in NS100 100ml (IVPB at Incision) 660 MG IV (13:26)
[2024-07-19] MEDS: Bupivacaine Mpf 0.5% 30 ML VIAL (13:26)
--- NOTE | 2024-07-19 14:31 | PN.HOSP_ITS ---
Reason for Visit Reason for Visit: Diagnoses Fracture of superior rim of right pubis, initial encounter for closed fracture (07/18/24) Fracture of unspecified part of neck of right femur, initial encounter for closed fracture (07/18/24) Objective Data Objective Data Vital Signs: Vital Signs Temp Pulse Resp BP Pulse Ox O2 Del Method 98.2 F 80 18 114/43 L 97 Room Air 07/19/24 11:07 07/19/24 11:07 07/19/24 11:07 07/19/24 11:07 07/19/24 11:07 07/19/24 09:30 Oxygen Delivery Method Room Air Weight: 108 lb 0.424 oz Body Mass Index (BMI) 16.9 Intake & Output: Intake and Output for Last 24 Hours 07/17/24 07/18/24 07/19/24 23:59 23:59 23:59 Intake Total 300 / 300 110 / 110 Balance 300 / 300 110 / 110 Lab / Micro Data 07/19/24 04:06 07/19/24 04:06 Labs: Laboratory Results - last 24 hr 07/18/24 13:14: Vitamin D 25-Hydroxy 83.7 07/19/24 04:06: WBC 5.0, RBC 3.80 L, Hgb 11.6 L, Hct 35.0 L, MCV 92.1, MCH 30.5, MCHC 33.1, RDW Std Deviation 48.5 H, RDW Coeff of Abby 14.4, Plt Count 236, MPV 10.4, Immature Gran % (Auto) 0.200, Neut % (Auto) 54.3, Lymph % (Auto) 35.1, [place] % (Auto) 10.0, Eos % (Auto) 0.0, Baso % (Auto) 0.4, Absolute Neuts (auto) 2.7, Absolute Lymphs (auto) 1.75, Nucleated RBC % 0, Sodium 142, Potassium 3.9, Chloride 109 H, Carbon Dioxide 21.4, Anion Gap 11, BUN 10, Creatinine 0.59 L, E stim Creat Clear Calc 45.33 L, Est GFR (MDRD) Non-Af 93, BUN/Creatinine Ratio 16.8, Glucose 92, Calcium 9.1, Blood Type O POSITIVE, Antibody Screen NEGATIVE Radiography Diagnostic Testing: Radiology Impression Lower Extremity CT 07/18/24 13:11 IMPRESSION: Fracture of the right femoral neck as above. Deviation from the normal appearance of the right superior pubic is not felt to represent a fracture. Reading Location: [facility] Physical Exam Narrative Seen and examined Patient admitted with right groin pain for last 3 weeks, difficulty to ambulate worse with range of movement and improved with rest. Denies any recent injury or fall. On imaging, found to have right femoral neck fracture Physical exam General: Alert, Oriented x3, Cooperative BMI 16.9 kg/m? HEENT: Atraumatic, PERRLA, EOMI, Normocephalic Oral: No Gingival or Mucosal Lesions/ Ulcerations Neck: Supple, No JVD, Negative Carotid Bruits Chest wall/Lungs: Air entry diminished in bilateral lung bases. No crepitation/rhonchi Cardiovascular: Regular rate, Regular Rhythm, Normal S1, Normal S2, No M/G/R Abdomen: Bowel Sounds Present, Soft, Non Tender, Non-Distended : No dysuria. No renal angle tenderness. No suprapubic tenderness. Extremities: No edema, Capillary Refill Less than 3 Seconds Skin: Chronic ganglion cyst on the left hand between second and third interdigital space Musculoskeletal: Tenderness over right hip/groin region. RLE externally rotated Neurological: Cranial nerves II-XII grossly intact, DTR 2+/4. No acute focal neurological deficit. Psych/Mental Status: Normal Affect, Appropriate. Assessment & Plan Assessment/Plan (1) Closed fracture of right superior pubic ramus: (2) Displaced fracture of right femoral neck: PLAN: Plan 1. Nontraumatic fracture of the right femoral neck ? CT of right lower extremity shows fracture of right femoral neck. Right superior pubic fracture ruled out. Shows chronic deformity. ? Continue with pain management ? N.p.o. after midnight ? Plan for orthopedic intervention in the morning ? 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 Given the appearance on x-ray and how osteopenic she appears, will obtain a vitamin D, calcium level is normal at 9.8 Chronic osteopenia: Serum calcium normal. Vitamin D 25-hydroxy 83.7. Her wrist x-rays from 2019 shows demineralization of the osseous structures suggestive of osteoporosis. Recommend DEXA scan as an outpatient and bisphosphonate as an outpatient. Moderate chronic malnutrition: BMI 16.9 kg/m?. Teacher Of The Sight Impaired consult. DVT: Lovenox
[2024-07-19] MEDS: TXA 1000mg in NS100 100ml (IVPB at Closure) 660 MG IV (14:33)
--- NOTE | 2024-07-19 14:53 | PCM.OPRPT ---
Problems Associated Problem List Diagnoses (1) Displaced fracture of right femoral neck: Procedures Musculoskeletal [id number]-29xxx: Other Procedure See Report Operative Report (Standard) Operative Information Date of Procedure: 07/19/24 Pre-Operative Diagnosis: R femoral neck fracture Post-Operative Diagnosis: same, and calcar fracture Surgery/Procedure Performed: Right hip cemented danika arthroplasty and ORIF calcar agricultural equipment mechanic: Dwaine Alumina Refinery Operator: miko Tasks completed by design assistant: Retracting Additional pastry assistant?: No Type of Anesthesia: General and Local RN Documented Start/Stop Times: Operation Date: 07/19/24 12:00 Case Time Into Pre-Op 07/19/24 11:06 Anesthesia Start 07/19/24 12:42 Into Room 07/19/24 12:42 Procedure Start 07/19/24 13:13 Procedure End 07/19/24 14:43 Anesthesia End 07/19/24 14:50 Out of Room 07/19/24 14:50 Procedure Start Time: 13:13 Procedure Stop Time: 14:43 Select all DRAINS/GRAFTS/IMPLANTS that apply: Prosthetic device Prosthetic device details: da accolade cemented danika and dall miles cables 2.0 Estimated Blood Loss: 50 Specimen collected: Yes Description of specimen(s) removed: femoral head Description of surgery: Patient brought to the operating theater. Placed supine on the table. General anesthesia induced. 2 g IV Ancef administered prior to the start of the case. 1g iv txa x 2 start and end of case. Patient transferred right side up lateral decubitus Baldwin hip positioner appropriately padded. SCD on the nonoperative leg. Axillary roll used. Leg prepped and draped in the usual sterile fashion allowing over 3 minutes drying time prior to draping with chlorhexidine-based prep solution. Preoperative timeout performed to confirm the site patient and the surgery. Began by making a standard lateral incision centered over the proximal femur. Carried the dissection down through skin and subcutaneous tissue achieved meticulous hemostasis. Incised the tensor fascia ras in line with the skin incision. I then sharply released the anterior one third of the abductors from the greater trochanter of the hip. I then made a T-shaped capsulotomy and put stay sutures in each limb. Identified the acetabulum. Identified the fracture site. I remove the femoral head. I made my neck cut approximately 1 cm above the level of the lesser trochanter. I sized the head to a size 46 mm. I thoroughly irrigated the acetabulum removed any debris. I then used the lateralizing box osteotome followed by broaching up to a size 7 with trialing the standard offset -3mm. Trialing resulted in a calcar fracture, identified distal end, stopped at level of LT. Fixed this with 2 [place] miles cables, tensioner device, then crimping device and cut short. Used one above and one below the lesser trochanter. Passed cable under the vastus lateralis. I then turned my attention back to the femur using the preparation devices, pulse lavage, Irrisept which I used irrigate throughout the case as well as the padded suction device. I sized for a centralizer to a 18mm, and then large cement restrictor, placed this after appropriate period of time of suctioning the canal. I selected my final implants the Da Accolade size 6, downsized due to a little tight with size 7, standard offset. Mixed cement using third-generation cement techniques. I cemented the femur use the pressurizing system. I then inserted the final component into the canal patient was stable throughout cementing. I cleaned away any excess cement. Thoroughly irrigated the acetabulum. I cleaned the trunnion thoroughly. I then impacted the final head size 46 mm bipolar, -3mm inner. The Johnston taper was stable and solid. I then reduced the hip again this was trialed and felt to be of appropriate length no impingement no instability. Appropriate length in terms of leg lengths and normal shuck test, no instability. I then closed the capsule using #1 Vicryl suture, abductors were repaired to the greater trochanter with FiberWire suture. I then used the barbed suture #1 stratafix running locking suture for the repair of the tensor fascia ras. Again soft tissues were thoroughly irrigated followed by closure of the subcutaneous tissue with 2-0 Vicryl sutures and skin with 3-0 Monocryl. 10 cc of 0.5% bupivacaine instilled in and around the soft tissues. Skin cleaned with wet and dry dressing followed application of Steri-Strips and silver Mepilex dressing. Patient transferred off the operating room table, case terminated. All sponge needle instrument counts were correct no complications plan for the patient readmitted under the hospitalist service VTE prophylaxis xarelto 10mg po OD 30 days, and postoperative x-ray and weightbearing as tolerated with PT and OT to assess. CPT 22974, 74954 Surgical Findings: as above Complications Complications: Yes Complication Details: calcar fracture Admit VTE Documentation VTE Present on Admission: No VTE Mechan Device Prophylaxis: SCD's VTE Pharm Prophylaxis ordered?: Yes
--- NOTE | 2024-07-19 15:10 | RAD_ITS ---
PROCEDURE: HIP MIN 2 VIEWS (PORTABLE) 07/19/2024 REASON FOR EXAM: POST OP, 1 VIEW AP ONLY TECHNIQUE: One (1) view of the right hip COMPARISON: Comparison is made with prior study dated July 18, 2024. FINDINGS: The patient is status post right hip replacement. There is good alignment. RAD/Hip Min 2 Views (Portable) IMPRESSION: Status post right total hip replacement. There is good alignment. Postoperative soft tissue changes. Reading Location: [facility]-
--- NOTE | 2024-07-19 15:15 | PCM.POST.ANE ---
Anesthesia: Postop Eval I Current Vital Signs Temperature: 97.2 F Pulse Rate: 88 Blood Pressure: 143/78 Respiratory Rate: 18 Pulse Ox: 98 Oxygen Delivery Method: Room Air Fraction of Inspired Oxygen (FIO2): 0.21 Assessment Airway patent: Yes Spontaneous unlabored respirations: Yes Mental status: Awake nausea: No Vomiting: No Anesthesia Complication: No Fluid Hydration Crystalloid volume administer (ml): 1,000 Total IV fluid infused: 1,000 Progress Note Anesthesia document: Postop Eval 1 completed: Yes
[2024-07-19] MEDS: Acetaminophen 500 MG Tablet 1000 MG PO (20:56)
[2024-07-19 21:07] LABS: Hemoglobin 11.8 g/dL (12.0-15.0)
[2024-07-19] MEDS: Morphine 2 MG/ML Syringe IV (23:44)
[2024-07-20 01:11] VITALS: BP 108/68; PULSE 75; RESP 16; TEMP 36.6; O2SAT 99
[2024-07-20] MEDS: oxyCODONE 5 MG Tablet PO ×2 (03:15→07:43)
[2024-07-20] MEDS: Morphine 2 MG/ML Syringe IV (06:12)
[2024-07-20] MEDS: Acetaminophen 500 MG Tablet 1000 MG PO ×3 (06:13→21:56)
[2024-07-20] MEDS: Cefazolin 2 GM in Syringe IV ×3 (06:13→21:55)
[2024-07-20 07:22] LABS: Absolute Lymphocyte Count 2.28 X10^3/uL (0.83-4.51); Basophil# 0.02 X10^3/uL; Basophil% 0.2 % (0-1); Hematocrit 36.1 % (37-47); Hemoglobin 11.8 g/dL (12.0-15.0); Lymphocyte # 2.28 X10^3/ul (0.83-4.51); Lymphocyte % 21.7 % (19-41); Mean Corp Hgb Conc 32.7 g/dL (32-36); Mean Corpuscular Hgb 30.5 pg (27.0-32.0); Mean Corpuscular Volume 93.3 fL (81-99); Mean Platelet Vol. 10.6 fl (6.2-12.0); Monocyte# 1.18 X10^3/uL; Monocyte% 11.2 % (0-10); NRBC Flagged by Analyzer 0 % (0-5); Neutrophil # 6.99 X10^3/uL (2.7-7.7); Neutrophil % 66.4 % (47-70); Platelet Count 271 K/mm3 (150-450); RBC Distribution Width CV 14.3 % (11.6-14.6); RBC Distribution Width SD 48.9 fl (35.1-43.9); Red Blood Count 3.87 M/mm3 (4.2-5.4); White Blood Count 10.5 K/mm3 (4.4-11.0)
[2024-07-20] MEDS: Alendronate Sodium 70 MG Tablet PO (07:42)
[2024-07-20 08:00] LABS: Anion Gap 13 (5-15); BUN 14 mg/dL (4-19); BUN/Creat Ratio 18.2 RATIO (10-20); Calcium,Total 9.4 mg/dL (7.6-11.0); Carbon Dioxide 22.1 mmol/L (21.0-32.0); Chloride 105 mmol/L (98-108); Creatinine, Serum 0.75 mg/dL (0.70-1.20); EST Glomerular Filtration Rate 83 (>60); Estimated Creatinine Clearance 46.28 ml/min (50-250); Glucose 132 mg/dL (70-99); Sodium Level 141 mmol/L (133-145)
[2024-07-20 08:12] VITALS: BP 108/62; PULSE 72; RESP 14; TEMP 36.5; O2SAT 98
[2024-07-20] MEDS: 0.9% Saline Lock 10 ML Syringe IV ×3 (11:10→21:56)
--- NOTE | 2024-07-20 12:40 | CASEMGMT ---
Social Work SW spoke w/pt about discharge options including home health, SNF level of care or rehab. Pt would prefer to return home if possible but is not quite certain just yet if she is moving well enough to do so. If she were to go home she would like [facility]. We also spoke about SNF and rehab options. SW did create for pt a list in [facility] of group home facilities in network w/insurance, in pt's preferred geographic area and complete w/quality and resource use data. Pt states she would want to stay close to home if rehab warranted. We spoke about SNF vs rehab. Given how active pt was prior to this surgery, rehab would be appropriate. Pt would want [facility] in rehab if she would need to go somewhere, so does not need a SNF list. SW explained will make a referral to rehab, and can follow up again once pt has had PT/OT again. Pt agreeable to this. SW did make referral to in rehab, will continue to follow. LOR Louis
--- NOTE | 2024-07-20 13:47 | POSTOPAN2_ITS ---
Anesthesia Postop Eval I Sum Postop Eval Completion status Anesthesia document: Postop Eval 1 completed: Yes Anesthesia Postop Eval I Summary Anesthesia Postop Eval I Summary: Anesthesia Postop Eval I: Assessment Summary Airway patent Yes 07/19/24 15:17 CHIEF CONTROLLER STATION.NFOR Spontaneous unlabored Yes 07/19/24 15:17 CHIEF CONTROLLER STATION.NFOR respirations Mental status Awake 07/19/24 15:17 CHIEF CONTROLLER STATION.NFOR nausea No 07/19/24 15:17 CHIEF CONTROLLER STATION.NFOR Vomiting No 07/19/24 15:17 CHIEF CONTROLLER STATION.NFOR Anesthesia Postop Eval I: Fluid Summary Crystalloid volume administer 1,000 07/19/24 15:17 CHIEF CONTROLLER STATION.NFOR (ml) Colloids volume administered ( ml) Blood Product volume administered (ml) Total IV fluid infused 1,000 07/19/24 15:17 CHIEF CONTROLLER STATION.NFOR Anesthesia Postop Eval I: Summary Notes Anesthesia Complication No 07/19/24 15:17 CHIEF CONTROLLER STATION.NFOR Anesthesia Complication Comment: Post-operative progress note Anesthesia: Postop Eval II Evaluation Mental status: Awake and Calm Pain Level: 0 nausea: No Vomiting: No Complications Anesthesia Complication: No
--- NOTE | 2024-07-20 13:47 | PCM.POSTANE2 ---
Anesthesia Postop Eval I Sum Postop Eval Completion status Anesthesia document: Postop Eval 1 completed: Yes Anesthesia Postop Eval I Summary Anesthesia Postop Eval I Summary: Anesthesia Postop Eval I: Assessment Summary Airway patent Yes 07/19/24 15:17 PUBLIC RELATIONS INTERN.NFOR Spontaneous unlabored Yes 07/19/24 15:17 PUBLIC RELATIONS INTERN.NFOR respirations Mental status Awake 07/19/24 15:17 PUBLIC RELATIONS INTERN.NFOR nausea No 07/19/24 15:17 PUBLIC RELATIONS INTERN.NFOR Vomiting No 07/19/24 15:17 PUBLIC RELATIONS INTERN.NFOR Anesthesia Postop Eval I: Fluid Summary Crystalloid volume administer 1,000 07/19/24 15:17 PUBLIC RELATIONS INTERN.NFOR (ml) Colloids volume administered ( ml) Blood Product volume administered (ml) Total IV fluid infused 1,000 07/19/24 15:17 PUBLIC RELATIONS INTERN.NFOR Anesthesia Postop Eval I: Summary Notes Anesthesia Complication No 07/19/24 15:17 PUBLIC RELATIONS INTERN.NFOR Anesthesia Complication Comment: Post-operative progress note Anesthesia: Postop Eval II Evaluation Mental status: Awake and Calm Pain Level: 0 nausea: No Vomiting: No Complications Anesthesia Complication: No
[2024-07-20 13:53] VITALS: BP 111/55; PULSE 89; RESP 18; TEMP 36.7; O2SAT 99
--- NOTE | 2024-07-20 14:17 | PCM.PN.ORT ---
Subjective Subjective POD 1 right hip danika. doing well. sat up half the day. some pain with hip ROM. Objective Data Objective Data Vital Signs: Vital Signs Temp Pulse Resp BP Pulse Ox O2 Del Method O2 Flow Rate 98.0 F 89 18 111/55 L 99 Room Air 2 07/20/24 13:53 07/20/24 13:53 07/20/24 13:53 07/20/24 13:53 07/20/24 13:53 07/20/24 13:53 07/20/24 01:11 FiO2 0.21 07/19/24 15:17 Oxygen Flow Rate (L/min) 2 Oxygen Delivery Method Room Air Weight: 108 lb 0.424 oz Body Mass Index (BMI) 16.9 Intake & Output: Intake and Output for Last 24 Hours 07/18/24 07/19/24 07/20/24 23:59 23:59 23:59 Intake Total 300 / 300 460 / 460 579.75 / 579.75 Balance 300 / 300 460 / 460 579.75 / 579.75 Lab / Micro Data 07/20/24 06:33 07/20/24 06:33 Labs: Laboratory Results - last 24 hr 07/19/24 20:35: Hgb 11.8 L, Hct 37.0 07/20/24 06:33: WBC 10.5, RBC 3.87 L, Hgb 11.8 L, Hct 36.1 L, MCV 93.3, MCH 30.5, MCHC 32.7, RDW Std Deviation 48.9 H, RDW Coeff of Abby 14.3, Plt Count 271, MPV 10.6, Immature Gran % (Auto) 0.500, Neut % (Auto) 66.4, Lymph % (Auto) 21.7, [place] % (Auto) 11.2 H, Eos % (Auto) 0.0, Baso % (Auto) 0.2, Absolute Neuts (auto) 7.0, Absolute Lymphs (auto) 2.28, Nucleated RBC % 0, Sodium 141, Potassium 4.0, Chloride 105, Carbon Dioxide 22.1, Anion Gap 13, BUN 14, Creatinine 0.75, Estim Creat Clear Calc 46.28 L, Est GFR (MDRD) Non-Af 83, BUN/Creatinine Ratio 18.2, Glucose 132 H, Calcium 9.4 Radiography Diagnostic Testing: Radiology Impression Hip X-Ray 07/19/24 15:10 IMPRESSION: Status post right total hip replacement. There is good alignment. Postoperative soft tissue changes. Reading Location: [facility] Assessment & Plan Assessment/Plan (1) Fracture of right hip: PLAN: 74F POD 1 right hip danika, doing well. recommend only partial WB given calcar fracture and cerlage cabling. CCM.
--- NOTE | 2024-07-20 14:35 | CASEMGMT ---
Addendum entered by Dayana Maradiaga 07/20/24 14:47: Social Work SW spoke w/pt again as SW did note some forgetfulness(pt repeating same stories to SW in the two times SW was in the room). SW inquired if it would be okay to call family to check in w/them about the discharge plan. Pt states she has not made up her mind, states they will find out eventually, did not agree to let SW call family. She did give SW her daughter Daniella's number: [phone], and her granddaughter Yanira's number: [phone]. Son in law Lucian listed on the face sheet is to daughter Daria. Pt has two daughters, her son recently . SW will continue to follow. LOR Louis Original Note: Social Work Pt was accepted into rehab. SW let pt know, pt may be agreeable to go, she wants to see how things to tomorrow. Pt may still prefer to go home. SW will follow up tomorrow. LOR Louis
--- NOTE | 2024-07-20 15:39 | PCM.PN.HOSP ---
Reason for Visit Reason for Visit: Diagnoses Fracture of superior rim of right pubis, initial encounter for closed fracture (07/18/24) Fracture of unspecified part of neck of right femur, initial encounter for closed fracture (07/18/24) Objective Data Objective Data Vital Signs: Vital Signs Temp Pulse Resp BP Pulse Ox O2 Del Method O2 Flow Rate 98.0 F 89 18 111/55 L 99 Room Air 2 07/20/24 13:53 07/20/24 13:53 07/20/24 13:53 07/20/24 13:53 07/20/24 13:53 07/20/24 13:53 07/20/24 01:11 FiO2 0.21 07/19/24 15:17 Oxygen Flow Rate (L/min) 2 Oxygen Delivery Method Room Air Weight: 108 lb 0.424 oz Body Mass Index (BMI) 16.9 Intake & Output: Intake and Output for Last 24 Hours 07/18/24 07/19/24 07/20/24 23:59 23:59 23:59 Intake Total 300 / 300 460 / 460 839.75 / 839.75 Balance 300 / 300 460 / 460 839.75 / 839.75 Lab / Micro Data 07/20/24 06:33 07/20/24 06:33 Labs: Laboratory Results - last 24 hr 07/19/24 20:35: Hgb 11.8 L, Hct 37.0 07/20/24 06:33: WBC 10.5, RBC 3.87 L, Hgb 11.8 L, Hct 36.1 L, MCV 93.3, MCH 30.5, MCHC 32.7, RDW Std Deviation 48.9 H, RDW Coeff of Abby 14.3, Plt Count 271, MPV 10.6, Immature Gran % (Auto) 0.500, Neut % (Auto) 66.4, Lymph % (Auto) 21.7, [place] % (Auto) 11.2 H, Eos % (Auto) 0.0, Baso % (Auto) 0.2, Absolute Neuts (auto) 7.0, Absolute Lymphs (auto) 2.28, Nucleated RBC % 0, Sodium 141, Potassium 4.0, Chloride 105, Carbon Dioxide 22.1, Anion Gap 13, BUN 14, Creatinine 0.75, Estim Creat Clear Calc 46.28 L, Est GFR (MDRD) Non-Af 83, BUN/Creatinine Ratio 18.2, Glucose 132 H, Calcium 9.4 Physical Exam Narrative Seen and examined Patient had right hip hemiarthroplasty on 07/19/2024. Complain of pain not at right hip but more distal on leg. Patient admitted with right groin pain for last 3 weeks, difficulty to ambulate worse with range of movement and improved with rest. Denies any recent injury or fall. On imaging, found to have right femoral neck fracture Physical exam General: Alert, Oriented x3, Cooperative BMI 16.9 kg/m? HEENT: Atraumatic, PERRLA, EOMI, Normocephalic Oral: No Gingival or Mucosal Lesions/ Ulcerations Neck: Supple, No JVD, Negative Carotid Bruits Chest wall/Lungs: Air entry diminished in bilateral lung bases. No crepitation/rhonchi Cardiovascular: Regular rate, Regular Rhythm, Normal S1, Normal S2, No M/G/R Abdomen: Bowel Sounds Present, Soft, Non Tender, Non-Distended : No dysuria. No renal angle tenderness. No suprapubic tenderness. Extremities: No edema, Capillary Refill Less than 3 Seconds Skin: Right hip surgical dressing is dry. Chronic ganglion cyst on the left hand between second and third interdigital space Musculoskeletal: Mild expected right hip postop tenderness but no acute tenderness at knee or ankle joint. Neurological: Cranial nerves II-XII grossly intact, DTR 2+/4. No acute focal neurological deficit. Psych/Mental Status: Normal Affect, Appropriate. Assessment & Plan Assessment/Plan (1) Closed fracture of right superior pubic ramus: (2) Displaced fracture of right femoral neck: PLAN: Plan 1. Nontraumatic fracture of the right femoral neck ? CT of right lower extremity shows fracture of right femoral neck. Right superior pubic fracture ruled out. Shows chronic deformity. 07/20: Patient had right hip cemented hemiarthroplasty and ORIF calcar on 07/19/2024. Patient complain of radiating pain in right knee and distal. Pain management. Has not bowel movement yet. Continue stool softener. Incentive spirometry. On Xarelto 10 mg daily. 2. 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 Chronic osteopenia: Serum calcium normal. Vitamin D 25-hydroxy 83.7. Calcium level is normal. Her wrist x-rays from 2019 shows demineralization of the osseous structures suggestive of osteoporosis. Recommend DEXA scan as an outpatient and bisphosphonate as an outpatient. 4. Moderate chronic malnutrition: BMI 16.9 kg/m?. Construction Management Assistant consult. DVT: Lovenox Charges/Coding Visit Charges Inpatient E&M: 30957 Subs Hosp L2
[2024-07-20] MEDS: Rivaroxaban 10 MG Tablet PO (16:48)
[2024-07-20 18:01] VITALS: BP 107/49; PULSE 99; RESP 18; TEMP 36.9; O2SAT 95
[2024-07-20 21:51] VITALS: BP 123/56; PULSE 93; RESP 15; TEMP 37.1; O2SAT 94
[2024-07-21 01:22] VITALS: BP 120/62; PULSE 88; RESP 15; TEMP 37.1; O2SAT 94
[2024-07-21] MEDS: Morphine 4 MG/ML Syringe IV (01:32)
[2024-07-21] MEDS: 0.9% Saline Lock 10 ML Syringe IV ×3 (01:34→14:15)
[2024-07-21 06:24] LABS: Absolute Neutrophil Count 8.5 X10^3/uL (2.0-7.7); Basophil# 0.01 X10^3/uL; Basophil% 0.1 % (0-1); Hematocrit 31.9 % (37-47); Hemoglobin 10.3 g/dL (12.0-15.0); Lymphocyte % 13.7 % (19-41); Mean Corp Hgb Conc 32.3 g/dL (32-36); Mean Corpuscular Hgb 30.2 pg (27.0-32.0); Mean Corpuscular Volume 93.5 fL (81-99); Mean Platelet Vol. 10.8 fl (6.2-12.0); Monocyte# 0.95 X10^3/uL; Monocyte% 8.7 % (0-10); NRBC Flagged by Analyzer 0 % (0-5); Neutrophil # 8.49 X10^3/uL (2.7-7.7); Neutrophil % 77.2 % (47-70); Platelet Count 219 K/mm3 (150-450); RBC Distribution Width CV 14.5 % (11.6-14.6); RBC Distribution Width SD 49.6 fl (35.1-43.9); Red Blood Count 3.41 M/mm3 (4.2-5.4)
[2024-07-21 06:32] LABS: Anion Gap 9 (5-15); BUN 13 mg/dL (4-19); BUN/Creat Ratio 20.7 RATIO (10-20); Calcium,Total 8.9 mg/dL (7.6-11.0); Carbon Dioxide 23.6 mmol/L (21.0-32.0); Chloride 107 mmol/L (98-108); Creatinine, Serum 0.62 mg/dL (0.70-1.20); EST Glomerular Filtration Rate 92 (>60); Estimated Creatinine Clearance 46.28 ml/min (50-250); Glucose 115 mg/dL (70-99); Potassium 3.9 mmol/L (3.3-5.1); Sodium Level 140 mmol/L (133-145)
[2024-07-21] MEDS: Cefazolin 2 GM in Syringe IV ×2 (06:47→14:14)
[2024-07-21] MEDS: Acetaminophen 500 MG Tablet 1000 MG PO ×2 (06:47→14:14)
[2024-07-21 08:00] VITALS: BP 103/64; PULSE 93; RESP 14; TEMP 36.5; O2SAT 99
--- NOTE | 2024-07-21 09:43 | NURSING ---
A student nurse came up to this RN stating that patient was making comments about suicide and killing herself. This RN went into the patient's room where there was another student nurse sitting at the bedside. This RN asked patient how she was feeling and she stated that she was feeling fine. This RN asked patient about the suicidal comments and patient stated that, If things are going to get bad for me I just want to have options instead of suffering. This RN asked patient to tell me more about that. Patient stated, When I get home I am going to look up ways to kill yourself to make sure it works so that I don't fail. I can't think of anything worse than than like jumping off a bridge and not even dying. This RN asked pt if she had a plan. Patient stated that she had no plan yet to kill herself but will try when she gets home. This RN asked patient if she wanted to kill herself at this time. Patient stated, There really isn't anything I could use here and I would not want to do that here because you girls are nice to me. This RN asked patient to promise that she would not kill herself at this time. Patient stated, I will not kill myself while I am in the hospital. This RN reported this conversation to [place] the web content & social media manager on shift today.
[2024-07-21 10:05] VITALS: O2SAT 99
--- NOTE | 2024-07-21 13:29 | DCINST_ITS ---
Discharge Instructions Diet Discharge Diet: No restrictions (8 oz chocolate or vanilla EPHP w/ meals when diet resumes) DC O2, CPAP, BIPAP needs Home O2 Discharge instructions: No Dressing / Incision Discharge Activity: Return to Normal Activity Weight Bearing Status: Weight bearing as tolerated Dressing / Incision Call your doctor if you observe: Fever of 101 or Higher, Coldness, Increased Pain, Numbness or Tingling, Change in Color, Inability to urinate, Inability to have a bowel movement, Shortness of breath, Dizziness, Fainting spells, Swelling in the ankles, Chest pain, Prolonged hiccupping, Increased palpitations (irregular heartbeat) and Calf discomfort Follow Up Care When: IN 2 WEEKS Test Results: Test results from this visit will be discussed in further detail at your follow- up appointment, if applicable. Discharge Plan Admission Admit Date/Time: 07/18/24 13:21 Primary Reason for Your Visit: Right hip fracture. Attending Provider: Tonio Obrien Primary Care Provider: Lyubov An Consulting Providers: Robin Vargas; Manuel Jama Discharge Orders/Prescriptions Prescriptions: New alendronate 70 mg Tablet 70 mg PO Q7D@0700 Qty: 0 0RF acetaminophen 500 mg Tablet 1,000 mg PO Q8 Qty: 0 0RF Rx Instructions: Tylenol 1 g every 8 hourly for 1 week and then every 8 hourly as needed for severe pain oxycodone 5 mg Tablet 2.5 mg PO Q4H PRN PRN (Reason: Pain Score 4-10) 3 Days Qty: 7 0RF Xarelto 10 mg Tablet 10 mg PO DINNER 30 Days Qty: 0 0RF Rx Instructions: For DVT prophylaxis Continued ibuprofen 200 mg capsule 200 mg PO Q6H PRN (Reason: pain) vitamin D3-vitamin K2 125-90 mcg capsule 1 cap PO DAILY cod liver oil Oil 15 ml PO DAILY multivitamin Tablet 1 tab PO DAILY milk thistle 150 mg capsule 150 mg PO DAILY Rx Instructions: give with meal/snack Referrals / Follow Up: Lyubov An MD [Primary Care Provider] - Within 1 Month Robin Vargas MD [Med Staff - Active Staff] - Within 2 Weeks Disposition Disposition (needs filled in before D/C Order can be placed): Inpatient Rehab Unit/Facility
[2024-07-21 14:08] VITALS: BP 116/63; PULSE 119; RESP 16; TEMP 36.8; O2SAT 98
[2024-07-21] MEDS: oxyCODONE 5 MG Tablet PO (14:14)
--- NOTE | 2024-07-21 15:23 | PCM.TXEXTCAR ---
Diet Diet Order/Speech Therapy: 07/19/24 14:52 Diet: Regular - General Type of Dietary Supplement:: Ensure Plus High Protein Diet Comments: 8 oz chocolate or vanilla EPHP w/ meals when diet resumes Routine Orders/Code Status Suppository Type: Dulcolax 10mg Suppository Frequency: Daily PRN Wound(s) RIGHT HIP: Wound Type: Surgical Incision Therapies Extremity Affected:: Bilateral Lower Physical Therapy: Eval and Treat Occupational Therapy: Eval and Treat Speech Therapy: Eval and Treat Problem/Diagnosis (1) Closed fracture of right superior pubic ramus: Status: Acute Code(s): S32.511A - Fracture of superior rim of right pubis, initial encounter for closed fracture (2) Displaced fracture of right femoral neck: Status: Acute Code(s): S72.001A - Fracture of unspecified part of neck of right femur, initial encounter for closed fracture Plan 1. Nontraumatic fracture of the right femoral neck ? CT of right lower extremity shows fracture of right femoral neck. Right superior pubic fracture ruled out. Shows chronic deformity. /: Patient had right hip cemented hemiarthroplasty and ORIF calcar on 07/19/2024. Patient complain of radiating pain in right knee and distal. Pain management. Has not bowel movement yet. Continue stool softener. Incentive spirometry. On Xarelto 10 mg daily. 2. 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 Chronic osteopenia: Serum calcium normal. Vitamin D 25-hydroxy 83.7. Calcium level is normal. Her wrist x-rays from 2019 shows demineralization of the osseous structures suggestive of osteoporosis. Recommend DEXA scan as an outpatient and bisphosphonate as an outpatient. 4. Moderate chronic malnutrition: BMI 16.9 kg/m?. Director Of Programming consult. DVT: Lovenox Allergies/Procedures Done in Hospital Allergies acetaminophen (From Vicodin) Adverse Reaction (Verified 07/18/24 10:41) Other avocado (avocodo) Adverse Reaction (Verified 07/19/24 10:00) Vomiting hydrocodone (From Vicodin) Adverse Reaction (Verified 07/18/24 10:41) Other morphine Adverse Reaction (Verified 07/18/24 10:41) Other Dietary and Speech Recommendations Dietitian Recommendations/Changes: As medically able, rec RENAY to liberal Regular w/ chocolate or vanilla Ensure Plus High Protein tid w/ meals Discharge Plan Admission Admit Date/Time: 07/18/24 13:21 Primary Reason for Your Visit: Right hip fracture. Attending Provider: Tonio Obrien Primary Care Provider: Lyubov An Consulting Providers: Robin Vargas; Manuel Jama Discharge Orders/Prescriptions Prescriptions: New alendronate 70 mg Tablet 70 mg PO Q7D@0700 Qty: 0 0RF acetaminophen 500 mg Tablet 1,000 mg PO Q8 Qty: 0 0RF Rx Instructions: Tylenol 1 g every 8 hourly for 1 week and then every 8 hourly as needed for severe pain oxycodone 5 mg Tablet 2.5 mg PO Q4H PRN PRN (Reason: Pain Score 4-10) 3 Days Qty: 7 0RF Xarelto 10 mg Tablet 10 mg PO DINNER 30 Days Qty: 0 0RF Rx Instructions: For DVT prophylaxis Continued ibuprofen 200 mg capsule 200 mg PO Q6H PRN (Reason: pain) vitamin D3-vitamin K2 125-90 mcg capsule 1 cap PO DAILY cod liver oil Oil 15 ml PO DAILY multivitamin Tablet 1 tab PO DAILY milk thistle 150 mg capsule 150 mg PO DAILY Rx Instructions: give with meal/snack Referrals / Follow Up: Lyubov An MD [Primary Care Provider] - Within 1 Month Robin Vargas MD [Med Staff - Active Staff] - Within 2 Weeks Disposition Disposition (needs filled in before D/C Order can be placed): Inpatient Rehab Unit/Facility
--- NOTE | 2024-07-21 15:30 | DS.PCM_ITS ---
Providers Date of Admission: 07/18/24 Date of Discharge: 07/21/24 Primary Care Physician: Dr. Lyubov An MD Consultations 07/18/24 15:03 Consult: Orthopedics Routine Consulting Provider: Robin Vargas Reason for Consult: Right hip fx EMERGENT Consult: No MD Notified: Yes Date Notified: 07/18/24 Time Notified: 13:23 Method of Notification: ED Physician Initiated Reason For Visit: RIGHT HIP FX Diagnosis Discharge Diagnosis (1) Closed fracture of right superior pubic ramus: Status: Acute Code(s): S32.511A - Fracture of superior rim of right pubis, initial encounter for closed fracture (2) Displaced fracture of right femoral neck: Status: Acute Code(s): S72.001A - Fracture of unspecified part of neck of right femur, initial encounter for closed fracture Plan 74-year-old female admitted with right groin pain for last 3 weeks, difficulty to ambulation worse with range of movement and improvement with rest. No recent injury or fall. Assessment and plan described below. 1. Nontraumatic fracture of the right femoral neck: She was admitted to [facility] floor. Initially hip/pelvis x-ray showed right hip fracture and raise suspicion of fracture of superior right pubic ramus. ? CT of right lower extremity shows fracture of right femoral neck. Right superior pubic fracture ruled out. Shows chronic deformity. 07/20: Patient had right hip cemented hemiarthroplasty and ORIF calcar on 07/19/2024. Patient complain of radiating pain in right knee and distal. Pain management. Has not bowel movement yet. Continue stool softener. Incentive spirometry. On Xarelto 10 mg daily. 07/21: Patient did well with the therapy. He is being discharged to inpatient rehab unit. Continue Xarelto for 1 month. On Tylenol and low-dose oxycodone. 2. 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 Chronic osteopenia: Serum calcium normal. Vitamin D 25-hydroxy 83.7. Calcium level is normal. Her wrist x-rays from 2019 shows demineralization of the osseous structures suggestive of osteoporosis. Recommend DEXA scan as an outpatient and bisphosphonate as an outpatient. 4. Moderate chronic malnutrition: BMI 16.9 kg/m?. Accounts Payable Assistant consult. DVT: Lovenox Discharge medication reconciliation done. Discharge follow-up instructions completed. Discharge process discussed with the patient and all questions were answered to patient's satisfaction. Follow with PCP in 1 to 2 weeks Total time spent, exact 35 minutes on discharge meds reconciliation, examination, coordination of care with nurses and ancillary staff, review of imaging and blood test and discussion with the patient on follow-up instructions. Medications at Discharge Home Medications ibuprofen 200 mg capsule 200 mg PO Q6H PRN pain 01/03/20 vitamin D3 125 mcg (5,000 unit)-vitamin K2 90 mcg capsule 1 cap PO DAILY 07/18/24 cod liver oil 15 ml PO DAILY SUPPLEMENT 07/19/24 milk thistle 150 mg capsule 150 mg PO DAILY SUPPLEMENT 07/19/24 multivitamin 1 tab PO DAILY SUPPLEMENT 07/19/24 acetaminophen 500 mg tablet 1,000 mg (2 x 500 mg) PO Q8 #0 tabs 07/21/24 alendronate 70 mg tablet 70 mg PO Q7D@0700 #0 tabs 07/21/24 oxycodone 5 mg tablet 2.5 mg (1/2 x 5 mg) PO Q4H PRN PRN Pain Score 4-10 3 days #7 tabs 07/21/24 rivaroxaban 10 mg tablet (Xarelto) 10 mg PO DINNER 30 days #0 tabs 07/21/24 Physical Exam Narrative Seen and examined Patient had right hip hemiarthroplasty on 07/19/2024. Complain of pain not at right hip but more distal on leg, and foot. Nonradiating pain but it is controlled Patient admitted with right groin pain for last 3 weeks, difficulty to ambulate worse with range of movement and improved with rest. Denies any recent injury or fall. On x-ray and CT imaging, found to have right femoral neck fracture Physical exam General: Alert, Oriented x3, Cooperative BMI 16.9 kg/m? HEENT: Atraumatic, PERRLA, EOMI, Normocephalic Oral: No Gingival or Mucosal Lesions/ Ulcerations Neck: Supple, No JVD, Negative Carotid Bruits Chest wall/Lungs: Air entry diminished in bilateral lung bases. No crepitation/rhonchi Cardiovascular: Regular rate, Regular Rhythm, Normal S1, Normal S2, No M/G/R Abdomen: Bowel Sounds Present, Soft, Non Tender, Non-Distended : No dysuria. No renal angle tenderness. No suprapubic tenderness. Extremities: No edema, Capillary Refill Less than 3 Seconds Skin: Right hip surgical dressing is dry. Chronic ganglion cyst on the left hand between second and third interdigital space Musculoskeletal: Mild expected right hip postop tenderness but no acute tenderness at knee or ankle joint. Neurological: Cranial nerves II-XII grossly intact, DTR 2+/4. No acute focal neurological deficit. Psych/Mental Status: Normal Affect, Appropriate. Weight / BMI Weight Weight: 108 lb 0.424 oz Body Mass Index (BMI) 16.9 ABG / Lab / Microbiology Data 07/21/24 05:20 07/21/24 05:20 Laboratory: Laboratory Results - last 24 hr 07/21/24 05:20: WBC 11.0, RBC 3.41 L, Hgb 10.3 L, Hct 31.9 L, MCV 93.5, MCH 30.2, MCHC 32.3, RDW Std Deviation 49.6 H, RDW Coeff of Abby 14.5, Plt Count 219, MPV 10.8, Immature Gran % (Auto) 0.300, Neut % (Auto) 77.2 H, Lymph % (Auto) 13.7 L, [place] % (Auto) 8.7, Eos % (Auto) 0.0, Baso % (Auto) 0.1, Absolute Neuts (auto) 8.5 H, Absolute Lymphs (auto) 1.50, Nucleated RBC % 0, Sodium 140, Potassium 3.9, Chloride 107, Carbon Dioxide 23.6, Anion Gap 9, BUN 13, C reatinine 0.62 L, Estim Creat Clear Calc 46.28 L, Est GFR (MDRD) Non-Af 92, B UN/Creatinine Ratio 20.7 H, Glucose 115 H, Calcium 8.9 D/C Instructions Discharge Diet: No restrictions (8 oz chocolate or vanilla EPHP w/ meals when diet resumes) Weight Bearing Status: Weight bearing as tolerated Call your doctor if you observe: Fever of 101 or Higher, Coldness, Increased Pain, Numbness or Tingling, Change in Color, Inability to urinate, Inability to have a bowel movement, Shortness of breath, Dizziness, Fainting spells, Swelling in the ankles, Chest pain, Prolonged hiccupping, Increased palpitations (irregular heartbeat) and Calf discomfort DC O2, CPAP, BIPAP Needs PSN CPAP & BiPAP: BiPAP & CPAP Settings per PSN Fraction of Inspired Oxygen ( 0.21 07/19/24 15:17 FIO2) Home O2 Discharge instructions: No When: IN 2 WEEKS Meaningful Use Info Meaningful Use Meaningful Use Diagnoses (Choose all that apply): None applicable Ischemic Stroke Statin Dosing Therapy Reference: STATIN DOSE THERAPY REFERENCE: * Patients > 75 years receive moderate or high dose statin therapy. * Patients 75 years or YOUNGER should receive HIGH intensity statin dose unless contraindicated. You will be required to document reason for non-treatment if statin daily dose does not meet guidelines. HIGH DOSE STATIN THERAPY DAILY Atorvastatin > than or = to 40 mg Rosuvastatin > than or = to 20 mg Amlodipine + Atorvastatin > than or = to 2.5/40 mg Ezetimibe + Simvastatin 10/80 mg Simvastatin 80mg Discharge Plan Admission Admit Date/Time: 07/18/24 13:21 Primary Reason for Your Visit: Right hip fracture. Attending Provider: Tonio Obrien Primary Care Provider: Lyubov An Consulting Providers: Robin Vargas; Manuel Jama Discharge Orders/Prescriptions Prescriptions: New alendronate 70 mg Tablet 70 mg PO Q7D@0700 Qty: 0 0RF acetaminophen 500 mg Tablet 1,000 mg PO Q8 Qty: 0 0RF Rx Instructions: Tylenol 1 g every 8 hourly for 1 week and then every 8 hourly as needed for severe pain oxycodone 5 mg Tablet 2.5 mg PO Q4H PRN PRN (Reason: Pain Score 4-10) 3 Days Qty: 7 0RF Xarelto 10 mg Tablet 10 mg PO DINNER 30 Days Qty: 0 0RF Rx Instructions: For DVT prophylaxis Continued ibuprofen 200 mg capsule 200 mg PO Q6H PRN (Reason: pain) vitamin D3-vitamin K2 125-90 mcg capsule 1 cap PO DAILY cod liver oil Oil 15 ml PO DAILY multivitamin Tablet 1 tab PO DAILY milk thistle 150 mg capsule 150 mg PO DAILY Rx Instructions: give with meal/snack Referrals / Follow Up: Lyubov An MD [Primary Care Provider] - Within 1 Month Robin Vargas MD [Med Staff - Active Staff] - Within 2 Weeks Disposition Disposition (needs filled in before D/C Order can be placed): Inpatient Rehab Unit/Facility Charges/Coding Visit Charges Inpatient E&M: 28772 Disch Hosp >30min
--- NOTE | 2024-07-21 16:07 | NURSING ---
All documentation by nursing home manager Sofie Moon reviewed by nursing technician Stephie SWANSONN, RN.
--- NOTE | 2024-07-21 16:30 | CASEMGMT ---
Social Work- Reason for consult: SW was notified by student nurses that pt was making concerning statements regarding self harm and possible suicidal ideation. Student nurses report that when moving pt around, she made statements about wanting to off herself. It was unclear to student nurses the intent of pt statements. Referral source: Student nurses SW met with pt to complete [place] risk assessment. SW introduced self and role and reason for visit. [place] SSRS SUICIDAL IDEATION Ask questions 1 and 2. If both are negative, proceed to ?Suicidal Behavior? section. If the answer question 2 is yes, ask questions 3, 4, 5. If the answer to question 1 and/or 2 is ?yes?, complete ?Intensity of Ideation? section below. 1. Wish to be ? Subject endorses thoughts about a wish to be or not alive anymore, or wish to fall asleep and not wake up. Have you wished you were or wished you could go to sleep and not wake up? Yes. Lifetime: Time He/She [place] Most Suicidal: Pt declines feeling suicidal; reports that she has always thought about assisted suicide to have a plan for a worst-case scenario. Past 1 month: Pt reports frequently/nearly daily. Please Describe if yes:I wouldn't be upset....wouldn't care if she did not wake up. 2. Non-Specific Active Suicidal Thoughts General, non-specific thoughts of wanting to end one?s life/commit suicide (e.g., ?I?ve thought about killing myself?) without thoughts of ways to kills oneself/associated methods, intent, or plan during the assessment period. Have you actually had any thoughts of killing yourself? No. Lifetime: Time He/She [place] Most Suicidal: Past 1 month: Please Describe if yes: 3. Active Suicidal Ideation with Any Methods (Not Plan) without Intent to Act Subject endorses thoughts of suicide and has thought of at least one method during the assessment period. This is different than a specific plan with time, place, or method details worked out (e.g., thought of method to kills self but not a specific plan). Includes person who would say ?I thought about thanking an overdose, but I never made a specific plan as to when, where or how. I would actually do it, and I would never go through with it.? Have you been thinking about how you might do this? Lifetime: Time He/She [place] Most Suicidal: Past 1 month: Please Describe if yes: 4. Active Suicidal Ideation with Some Intent to Act, without Specific Plan Active suicidal thoughts of kills oneself fand subject reports having some intent to act on such thoughts, as opposed to ?I have the thoughts but I definitely will not do anything about them.? Have you had these thoughts and had some intention of acting on them? Lifetime: Time He/She [place] Most Suicidal: Past 1 month: Please Describe if yes: 5. Active Suicidal Ideation with Specific Plan and Intent Thoughts of kills oneself with details of plan fully or partially worked out and subject has some intent to care it out. Have you started to work out or worked out the details of how to kill yourself? Do you intend to carry out this plan? Lifetime: Time He/She [place] Most Suicidal: Past 1 month: Please Describe if yes: INTENSITY OF IDEATION The following feature should be rated with respect to the most sever type of ideation (i.e., 1-5 from above, with 1 being the least severe and 5 being the most severe). Ask about time he/she/they were feeling the most suicidal. Lifetime - Most Severe Ideation: Type # (1-5):1 Description: I wouldn't be upset....wouldn't care if she did not wake up. Recent - Most Severe Ideation: Type # (1-5):1 Description: I wouldn't be upset....wouldn't care if she did not wake up. Frequency How many times have you had these thoughts? Lifetime: (1) Less than once a week (2) Once a week (3) 2-5 times in week (4) Daily or almost daily (5) Many times each day Recent, Past 1 month: (1) Less than once a week (2) Once a week (3) 2-5 times in week (4) Daily or almost daily (5) Many times each day Duration When you have the thoughts how long do they last? Lifetime: (1) Fleeting - few seconds or minutes (2) Less than 1 hour/some of the time (3) 1-4 hours/a lot of time 4) 4-8 hours/most of day (5) More than 8 hours/persistent or continuous Recent, Past 1 month : (1) Fleeting - few seconds or minutes (2) Less than 1 hour/some of the time (3) 1-4 hours/a lot of time 4) 4-8 hours/most of day (5) More than 8 hours/persistent or continuous Controllability Could/can you stop thinking about killing yourself or wanting to if you want to? Lifetime: (1) Easily able to control thoughts (2) Can control thoughts with little difficulty (3) Can control thoughts with some difficulty 4) Can control thoughts with a lot of difficulty (5) Unable to control thoughts (0) Does not attempt to control thoughts Recent, Past 1 month: (1) Easily able to control thoughts (2) Can control thoughts with little difficulty (3) Can control thoughts with some difficulty 4) Can control thoughts with a lot of difficulty (5) Unable to control thoughts (0) Does not attempt to control thoughts Deterrents Are there things - anyone or anything (e.g., family, yazdanism, pain of ) - that stopped you from wanting to or acting on thoughts of committing suicide? Lifetime: (1) Deterrents definitely stopped you from attempting suicide (2) Deterrents probably stopped you (3) Uncertain that deterrents stopped you (4) Deterrents most likely did not stop you (5) Deterrents definitely did not stop you 0) Does not apply Recent: (1) Deterrents definitely stopped you from attempting suicide (2) Deterrents probably stopped you (3) Uncertain that deterrents stopped you (4) Deterrents most likely did not stop you (5) Deterrents definitely did not stop you 0) Does not apply Reasons for Ideation What sort of reasons did you have for thinking about wanting to or killing yourself? Was it to end the pain or stop the way you were feeling (in other words you couldn?t go on living with this pain or how you were feeling) or was it to get attention, revenge or a reaction from others? Or both? Lifetime: (1) Completely to get attention, revenge or a reaction from (2) Mostly to get attention, revenge or a reaction from others (3) Equally to get attention, revenge or a reaction from others and to end/stop the pain ( 4) Mostly to end or stop the pain (you couldn?t go on living with the pain or how you were feeling) (5) Completely to end or stop the pain (you couldn?t go on living with the pain or how you were feeling) (0) Does not apply Recent: (1) Completely to get attention, revenge or a reaction from (2) Mostly to get attention, revenge or a reaction from others (3) Equally to get attention, revenge or a reaction from others and to end/stop the pain (4) Mostly to end or stop the pain (you couldn?t go on living with the pain or how you were feeling) (5) Completely to end or stop the pain (you couldn?t go on living with the pain or how you were feeling) (0) Does not apply SUICIDAL BEHAVIOR Actual Attempt: A potentially self-injurious act committed with at least some wish to , as a result of act. Behavior was in part thought of as method to kill oneself. Intent does not have to be 100%. If there is any intent/desire to associated with the act, then it can be considered an actual suicide attempt. There does not have to be any injury of harm, just the potential for injury or harm. If person pulls trigger while gun is in mouth, but gun is broken so no injury results, this is considered an attempt. Inferring intent: Even if an individual denies intent/wish to , it may be inferred clinically from the behavior or circumstances. For example, a highly lethal act that is clearly not an accident so no other intent but suicide can be inferred (e.g. gunshot to head, jumping from window of a high floor/story). Also, if someone denies intent to , but they thought that what they did could be lethal, intent may be inferred. Have you made a suicide attempt? NO Have you done anything to harm yourself? NO Have you done anything dangerous where you could have ? NO What did you do? Did you as a way to end your life? Did you want to (even a little) when you ? Were you trying to end your life when you ? Or did you think it was possible you could have from ? Or did you do it purely for other reasons/without ANY intention of killing yourself like to relieve stress, feel better, get sympathy, or get something else to happen)? (Self -Injurious Behavior without suicidal intent) Lifetime: Past 3 months: If yes, describe: Total # of Attempts in His/Her Lifetime: 0 Total # of attempts in Past 3 months: 0 Has person engaged in Non-Suicidal Sefl-Injurious Behavior? Lifetime: NO Past 3 months: NO Interrupted Attempt: When the person is interrupted (by an outside circumstance) from starting the potentially self-injurious act (if not for that, actual attempt would have occurred). Overdose: Person has pills in hand but is stopped from ingesting. Once they ingest any pills, this becomes an attempt rather than an interrupted attempt. Shooting: Person has gun pointed toward self, gun is taken away by someone else, or is somehow prevented from pulling trigger. Once they pull the trigger, even if the gun fails to fire, it is an attempt. Jumping: Person is poised to jump, is grabbed and taken down from ledge. Hanging: Person has noose around neck but has not yet started to hang self -is stopped from doing so. Has there been a time when you started to do something to end your life but someone or something stopped you before you did anything? NO Lifetime: Past 3 months: If yes, describe: Total # of interrupted attempts in His/Her Lifetime:0 Total # of interrupted attempts in Past 3 months:0 Aborted or Self-Interrupted Attempt: When person begins to take steps toward making a suicide attempt, but stops themselves before they have actually engaged in any self-destructive behavior. Examples are like interrupted attempts, except that the individual stops him/herself, instead of being stopped by something else. Has there been a time when you started to do something to try to end your life, but you stopped yourself before you did anything?NO Lifetime: Past 3 months: If yes, describe: Total # of aborted or self-interrupted attempts in His/Her Lifetime:0 Total # of aborted or self-interrupted attempts in Past 3 months:0 Preparatory Acts or Behavior: Acts or preparation towards imminently making a suicide attempt. This can include anything beyond a verbalization or thought, such as assembling a specific method (e.g., buying pills, purchasing a gun) or preparing for one?s by suicide (e.g., giving things away, writing a suicide note). Have you taken any steps towards making a suicide attempt or preparing to kill yourself (such as collecting pills, getting a gun, giving valuables away or writing a suicide note)? NO Lifetime: Past 3 months: If yes, describe: Total # of preparatory acts in His/Her Lifetime:0 Total # of preparatory acts in Past 3 months:0 Lethality/Medical Damage: 0. No physical damage or very minor physical damage (e.g., surface scratches). 1. Minor physical damage (e.g., lethargic speech; first-degree lara; mild bleeding; sprains). 2. Moderate physical damage; medical attention needed (e.g., conscious but sleepy, somewhat responsive; second-degree lara; bleeding of major vessel). 3. Moderately severe physical damage; medical hospitalization and likely intensive care required (e.g., comatose with reflexes intact; third-degree lara less than 20% of body; extensive blood loss but can recover; major fractures). 4. Severe physical damage; medical hospitalization with intensive care required (e.g., comatose without reflexes; third-degree lara over 20% of body; extensive blood loss with unstable vital signs; major damage to a vital area). 5. Most Recent attempt Date: Code: Most Lethal Attempt Date: Code: Initial/First Attempt Date: Code: Potential Lethality: Only Answer if Actual Lethality=0 Likely lethality of actual attempt if no medical damage (the following examples, while having no actual medical damage, had potential for very serious lethality: put gun in mouth and pulled the trigger but gun fails to fire so no medical damage; laying on train tracks with oncoming train but pulled away before run over). 0 = Behavior not likely to result in injury 1 = Behavior likely to result in injury but not likely to cause 2 = Behavior likely to result in despite available medical care Most Recent Attempt Code: Most Lethal Attempt Code: Initial/First Attempt Code: Pt reports that she has a close relationship with daughter Daniella and granddaughter Yanira. Pt reports that Yanira has offered that pt can live on her property in a small home. Pt reports that she would enjoy being near her great grandchildren. Pt reports that she has a good friend Giovanna who is also a support to pt. Pt shared that she is looking forward to for therapy and the ability to return home independent and pain-free. Pt shares that she is interested in volunteering in the community and is interested in counseling. Pt reports no active plans at this time for self harm or suicide, instead reporting that she does not tolerate chronic pain or frustration well and she has been dealing with both since May when pt initially hurt her hip. Pt reports that she has no history of mental health, although she reports a difficult childhood and that she recognized about 50 years ago that she was making poor life choices and saw a counselor briefly to help in feeling more successful in her life. Pt indicated that being independent is of utmost importance to her and that she has struggled with being unable to cook, clean, or walk. Pt spoke of her son's passing in April, reporting that she feels that she has grieved the loss, but reports that I have never lost a child, so I don't really know. Pt is receptive to mental health supports. MICHELET reviewed with type photography supervisor Robert HOROWITZ. MICHELET reviewed with Dr Obrien who agrees that pt does not evaluation by crisis or sitter at this time. Updated bedside nurse and charge nurse. Updated [facility] admissions. MICHELET collaborated with MICHELET Hinkle to provide handoff. Plan: Discharge to for additional therapy prior to return home. ASHWIN Talbert
[2024-07-21] MEDS: Rivaroxaban 10 MG Tablet PO (17:04)
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
--- NOTE | 2024-07-21 19:49 | CASEMGMT ---
Social Work- Physician feels that pt is medically ready for discharge. SW met with pt to discuss discharge to [facility]. Pt agreeable to discharge. SW updated [facility] admissions. Plan: [facility] ASHWIN Herrera
== END 2024-07-21 18:02 | DRG 956 ==
LOC: ED 13:47 → MS3 14:19
PROVIDERS: Orthopaedic Surgery Sports Medicine; Physician Assistant; Admitting Provider Family Medicine; Emergency Provider Emergency Medicine; PCP Internal Medicine; Visit Provider Internal Medicine
PROC: 0SRR0J9 Replacement of Right Hip Joint, Femoral Surface with Synthetic Substitute, Cemented, Open Approach (ICD-10-PCS; CPT 27125; principal; 2024-07-19 11:40)
DX: S72.041A Displaced fracture of base of neck of right femur, initial encounter for closed fracture (principal); S32.511A Fracture of superior rim of right pubis, initial encounter for closed fracture; E44.0 Moderate protein-calorie malnutrition; C21.0 Malignant neoplasm of anus, unspecified; M96.69 Fracture of other bone following insertion of orthopedic implant, joint prosthesis, or bone plate; Z68.1 Body mass index [BMI] 19.9 or less, adult; J43.9 Emphysema, unspecified; F17.210 Nicotine dependence, cigarettes, uncomplicated; M25.561 Pain in right knee; Z79.891 Long term (current) use of opiate analgesic; M85.88 Other specified disorders of bone density and structure, other site; Z92.23 Personal history of estrogen therapy; Z92.21 Personal history of antineoplastic chemotherapy; Z91.148 Patient's other noncompliance with medication regimen for other reason; Z53.20 Procedure and treatment not carried out because of patient's decision for unspecified reasons; Z88.8 Allergy status to other drugs, medicaments and biological substances; Z88.5 Allergy status to narcotic agent; Z98.890 Other specified postprocedural states; Z87.442 Personal history of urinary calculi; X58.XXXA Exposure to other specified factors, initial encounter; Y79.2 Prosthetic and other implants, materials and accessory orthopedic devices associated with adverse incidents; Z79.01 Long term (current) use of anticoagulants; Z96.641 Presence of right artificial hip joint
CPT/HCPCS: 36415; 73502; 73700; 80048; 82306; 85014; 85018; 85025; 86850; 86900; 86901; 88307; 88311; 93005; 97162; 97166; 97535; 99284; C1776; A4216; J2405

== ENCOUNTER 2024-07-21 18:15 | Inpatient (IN) | payer MEDICARE, MEDICAID, SELFPAY ==
[2024-07-21 19:05] VITALS: BP 102/48; PULSE 101; RESP 18; TEMP 37.2; O2SAT 94; BMI 18.0
[2024-07-21] MEDS: oxyCODONE 5 MG Tablet 2.5 MG PO ×2 (19:27→23:29)
--- NOTE | 2024-07-21 19:49 | EX.PCM.HP.RE ---
HPI - General General Date of Admission: 07/21/24 Date of Service: 07/22/24 Chief Complaint: Here for 3 hours daily rehabilitation. [facility] Narrative MONTSERRAT PAULA, is a 74 Female who presents with followin07/18/2024 [facility] lower extremity injury. Right groin pain for 3 weeks, hard to walk. Pain worse with range of motion right hip, improves with rest. Tylenol not helpful. X-ray right hip fracture, right pelvic pain. 07/18/[address] [facility]. CT right hip to evaluate for lytic lesions, pathologic fracture. Right hip fracture was non-traumatic. 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 Patient stopped radiation, chemotherapy treatments because she thought treatment would kill her. 07/19/2024 Dr. Vargas performed right hip cemented hemiarthroplasty and ORIF calcar. 07/20/2024 Sat up half the day, some pain with right hip range of motion. Partial WB / Calcar fracture with cerclage cabling. 07/20/2024 Incentive spirometry, Xarelto 10mg daily dvt prophylaxis. Recommend dexa as outpatient. Patient has right pelvic fracture as well, treated non-surgically. 07/21/2024 Admit to for 3 hours daily rehabilitation, strengthening, prior to discharge home alone. [facility] Medical History (Updated 07/21/24 @ 20:[address] Tej Fried MD) Vitamin D deficiency Displaced fracture of right femoral neck Home Medications ?Medication ?Instructions ?Recorded ?Last Taken ?Type ibuprofen 200 mg capsule 200 mg PO Q6H PRN pain 01/03/20 07/18/24 History vitamin D3 125 mcg (5,000 1 cap PO DAILY supplement 07/18/24 Unknown History unit)-vitamin K2 90 mcg capsule cod liver oil 15 ml PO DAILY SUPPLEMENT 07/19/24 Unknown History Held on 07/21/24. Instructions: MD Ordered milk thistle 150 mg capsule 150 mg PO DAILY SUPPLEMENT 07/19/24 Unknown History Held on 07/21/24. Instructions: Ordered multivitamin 1 tab PO DAILY SUPPLEMENT 07/19/24 Unknown History acetaminophen 500 mg tablet 1,000 mg PO Q8 pain 07/21/24 07/21/24 History alendronate 70 mg tablet 70 mg PO Q7D@0700 osteopenia #0 07/21/24 Unknown Rx tabs oxycodone 5 mg tablet 2.5 mg (1/2 x 5 mg) PO Q4H PRN PRN 07/21/24 07/21/24 Rx Pain Score 1-10 3 days #7 tabs rivaroxaban 10 mg tablet (Xarelto) 10 mg PO DINNER DVT prophylaxix 07/21/24 07/21/24 History Allergy/AdvReac Type Severity Reaction Status Date / Time acetaminophen (From Vicodin) AdvReac Other Verified 07/18/24 10:41 avocado (avocodo) AdvReac Vomiting Verified 07/19/24 10:00 hydrocodone (From Vicodin) AdvReac Other Verified 07/18/24 10:41 morphine AdvReac Other Verified 07/18/24 10:41 Family History Mother Cancer Father Emphysema/COPD Surgical History (Updated 07/21/24 @ 20:[address] Tej Fried MD) History of right hip hemiarthroplasty H/O tubal ligation H/O arthroscopic knee surgery Social History household members: none housing: house Smoking Status: Light Smoker (<10/day) Tobacco: How many years used: 52 alcohol intake: never what type of physical activity do you participate in: none ROS Constitutional Constitutional: Reports weakness; Denies chills, fever(s) or weight gain ENT HEENT: Denies headache(s), nasal congestion or nasal discharge Cardiovascular Cardiovascular: Denies chest pain or palpitations Respiratory/Chest Respiratory/Chest: Denies cough, excessive phlegm production or shortness of breath with exertion Gastrointestinal Gastrointestinal: Denies abdominal pain, nausea or vomiting Genitourinary Genitourinary: Denies dysuria Musculoskeletal Musculoskeletal: Denies joint pain or joint swelling Integumentary Integumentary: Denies rash or wounds Neurologic Neurologic: Denies focal weakness, numbness or tingling Psychiatric Psychiatric: Denies anxiety, auditory hallucinations, depression, homicidal ideation or suicidal ideation Vital Signs Vital Signs Vital Signs: 07/21/24 19:05 Temperature 98.9 F Temperature Source Temporal Pulse Rate 101 H Respiratory Rate 18 Blood Pressure 102/48 L Blood Pressure Mean 66 Blood Pressure Source Monitor Blood Pressure Position Semi-Fowlers Blood Pressure Location Right Arm Pulse Ox 94 Oxygen Delivery Method Room Air Weight Weight: 53.7 kg Body Mass Index (BMI) 18.0 Indicators for Scoring Admitted with or Primary Diagnosis of CVA/Stroke: No Hx of CVA/Stroke: No Physical Exam Const alert General Appearance: cooperative HEENT normocephalic Eyes PERRL and EOMs intact bilaterally Neck supple, no JVD and no carotid bruits Resp normal respiratory effort, normal air movement and clear to auscultation bilaterally Cardio regular rate and regular rhythm GI normal to inspection, nondistended, normoactive bowel sounds, non-tender and non-distended Extremity normal capillary refill General Extremity: Negative for edema Skin no rashes or lesions noted General Skin Exam: no breakdown Psych affect normal Appearance: appropriate Results Lab / Micro Data 07/22/24 06:08 07/22/24 06:08 Assessment & Plan Assessment/Plan (1) Fracture of right hip: (2) Closed fracture of right superior pubic ramus: (3) Debility: (4) Squamous cell cancer, anus: (5) Vitamin D deficiency: PLAN: Plan 74 year old female with below past medical history hospitalized for right hip fracture, right pelvis fracture, underwent right hip hemiarthroplasty and ORIF calcar 07/19/[address] Vargas, admitted to for 3 hours daily rehabilitation, strengthening, prior to discharge home alone. Debility - PT/OT. Pain - Tylenol 1000mg q8, Oxycodone 5mg q4 prn pain (1-10), Ibuprofen 200mg q6 prn. Bowel - senna/colace 2 tablets bid, Dulcolax 10mg pr x 1 prn, MOM 30mL po x 1 prn. DVT prophylaxis - Xarelto 10mg daily thru 08/21/2024. Osteoporosis - Alendronate 70mg qweek. Vitamin D deficiency - D3 125mcg daily. Nutrition - Ensure Plus 120mL tidcm, MVI 1 tablet daily. Insomnia - Doxepin 10mg qhs.
[2024-07-21] MEDS: Acetaminophen 500 MG Tablet 1000 MG PO (21:20)
[2024-07-21] MEDS: Senna/Docusate Sodium 1 Tablet 2 TABLET PO (21:20)
[2024-07-21 22:00] VITALS: RESP 15
[2024-07-21] MEDS: Ibuprofen 200 MG Tablet PO (23:29)
[2024-07-21] MEDS: 0.9% Saline Lock 10 ML Syringe IV (23:30)
--- NOTE | 2024-07-21 23:51 | NURSING ---
Pt setting off BA several times. Despite only being on Inpatient Rehab a few hours, pt is complaining that Rehab isn't working for her. Pt c/o pain and PRN pain meds provided. Pt dismisses staff help and says she just doesn't see why nothing is helping her. Staff has been in room numerous times to find ways to provide comfort but pt rejects help.
[2024-07-22] MEDS: oxyCODONE 5 MG Tablet 2.5 MG PO (04:10)
[2024-07-22 06:00] VITALS: BP 104/48; PULSE 93; RESP 15; TEMP 36.4; O2SAT 94
[2024-07-22] MEDS: Acetaminophen 500 MG Tablet 1000 MG PO ×3 (06:36→20:53)
[2024-07-22 06:40] LABS: Absolute Lymphocyte Count 1.14 X10^3/uL (0.83-4.51); Absolute Neutrophil Count 8.5 X10^3/uL (2.0-7.7); Basophil# 0.03 X10^3/uL; Basophil% 0.3 % (0-1); Hematocrit 28.5 % (37-47); Hemoglobin 9.3 g/dL (12.0-15.0); Lymphocyte # 1.14 X10^3/ul (0.83-4.51); Lymphocyte % 10.9 % (19-41); Mean Corp Hgb Conc 32.6 g/dL (32-36); Mean Corpuscular Hgb 30.3 pg (27.0-32.0); Mean Corpuscular Volume 92.8 fL (81-99); Mean Platelet Vol. 10.8 fl (6.2-12.0); Monocyte# 0.73 X10^3/uL; NRBC Flagged by Analyzer 0 % (0-5); Neutrophil # 8.51 X10^3/uL (2.7-7.7); Neutrophil % 81.2 % (47-70); Platelet Count 222 K/mm3 (150-450); RBC Distribution Width CV 14.6 % (11.6-14.6); RBC Distribution Width SD 49.3 fl (35.1-43.9); Red Blood Count 3.07 M/mm3 (4.2-5.4); White Blood Count 10.5 K/mm3 (4.4-11.0)
[2024-07-22 06:47] LABS: ALB/GLOB Ratio 1.2 RATIO (0.9-2.4); AST(SGOT) 50 U/L (<=31); Alanine Aminotransfer ALT/SGPT 16 U/L (<=34); Albumin, Serum 3.2 g/dL (3.4-4.8); Alkaline Phosphatase 84 U/L (35-104); Anion Gap 8 (5-15); BUN 13 mg/dL (4-19); BUN/Creat Ratio 24.8 RATIO (10-20); Calcium,Total 9.4 mg/dL (7.6-11.0); Chloride 107 mmol/L (98-108); Creatinine, Serum 0.54 mg/dL (0.70-1.20); EST Glomerular Filtration Rate 95 (>60); Estimated Creatinine Clearance 50.72 ml/min (50-250); Globulin 2.7 g/dL (2.2-4.2); Glucose 106 mg/dL (70-99); Phosphorus 2.4 mg/dL (2.7-4.5); Potassium 3.8 mmol/L (3.3-5.1); Protein, Total 5.9 g/dL (5.9-8.4); Sodium Level 141 mmol/L (133-145); Total Bilirubin 0.75 mg/dL (0.00-1.30)
[2024-07-22] MEDS: 0.9% Saline Lock 10 ML Syringe IV ×3 (06:47→23:43)
[2024-07-22] MEDS: Multivitamins,Therapeutic Tablet 1 TABLET PO (08:51)
[2024-07-22] MEDS: Cholecalciferol (Vit D3) 125 MCG CAPSULE (5,000 UNITS) PO (08:51)
[2024-07-22] MEDS: Na Biphos/Potassium Phosphate PACKET 1 PACKET PO ×2 (08:51→20:54)
[2024-07-22] MEDS: Ensure Plus High Protein 120 ML LIQUID PO ×2 (08:51→11:31)
[2024-07-22] MEDS: Senna/Docusate Sodium 1 Tablet 2 TABLET PO ×2 (08:52→20:53)
[2024-07-22] MEDS: oxyCODONE 5 MG Tablet PO ×2 (11:29→20:53)
[2024-07-22] MEDS: Rivaroxaban 10 MG Tablet PO (17:28)
[2024-07-22 17:29] VITALS: BP 110/46; PULSE 89; RESP 16; TEMP 37.2; O2SAT 96
--- NOTE | 2024-07-22 19:46 | REHABEVAL_ITS ---
Admission Information Primary Diagnosis:: Right hip fracture, s/p right hip hemiarthroplasty, right pelvic fracture. Status Changes from Prescreening?: No changes Identified Actual Problem List:: Falls, Pain, ALteration in Cmfrt, Bowel, Constipation, Alteration in Sleep, Mobility Impaired, Self Care Deficit, Ineffective Communication, Know.Dfct/Disease Process, Know.Dfct of Medicaitons and Alteration-Leisure Activ. Potential Problem List:: DVT, Bleeding, Infection, UTI, Aspiration, Falls, Skin Integrity and Depression Risk of Complications DVT: LMWH, ABEL Hose and Sequential Compression Device Bleeding: Monitor Lab Values, Nursing to Teach Precautions for anti-coagulation therapy., Wound, if applicable, to be assessed every shift. and Stroke patients assessed for lethargy or change in status. Infection: Clinical Staff to Monitor for S/S of infection: and S/S of infection include fever, redness, warmth, etc. Urinary Tract Infection: Monitor for frequency, burning, discomfort, or incontinence. and Nursing will obtain urine sample for urinalysis and C&S when ordered. Aspiration: Clinical staff will monitor for coughing, drooling, congestion., Speech will evaluate swallowing and dsyphasia. and Nursing will monitor patient swallowing during meals. Falls: Patient will be evaluated for Fall Precautions and Patient will be placed on Fall Precautions as indicated per protocol. Skin Breakdown: Nursing will assess skin daily using assessment tool. and Nursing will place on Skin Breakdown Precautions as indicated. Pain: Clinical staff will assess patient's pain level per protocol., Medications will be given, if needed, and the pain level reassessed. and Other methods: Massage, distraction, decrease stimulus, etc. used PRN. Plan of Care Patient requires physician specializing in physical medicine and rehab oversight to provide close medical supervision of rehab issues including: Pain Management, Sleep Problems, Bowel and Bladder, Medical and co-morbidity Management, DVT prophylaxis, Rehabilitation Leadership and Coordination of treatment team Patient needs Physical Therapy: At least 5 out of 7 days and For a minimum of 1.5 hrs Patient needs Physical Therapy to improve:: Mobility, Strengthening, Transfers, Stretching, ROM, Endurance, Stairs, Gait and Balance Patient needs Occupational Therapy: At least 5 out of 7 days and For a minimum of 1.5 hrs Patient needs Occupational Therapy to improve ADL's incl.: Eating, Grooming, Bathing, Dressing, Toileting, Toilet transfers, Community Reintegration, Higher functioning activities, Household tasks, Adaptive Equipment, Splinting and Other activities as determined Patient requires 24/7 Rehabilitation Nursing for: Pain Issues, Identifying and preventing risk factors, Monitoring and reporting current medical conditions, Assisting with ambulation, transfer, and all ADL's, Teaching patients about disease process and medications, Family teaching, Providing safe environment, Bowel and Bladder Issues, Skin integrity and Medication Management Patient needs Research Staff Member/ Case Management for: Discharge Planning, Arranging Home Equipment or Services and Family Interventions Patient needs Dietary and Nutrition Services for: Adequate Nutrition, Nutritional Supplements and Nutritional Education Goals Goals Patient will remain: free from falls and or injury at time of discharge. Patient will complete transfers from bed to chair at: Standby Assist. Patient will ambulate: with MOD I assist, with LRD and - (165 feet.) Patient will complete upper body dressing at: MOD I level of assist. Patient will complete lower body dressing at: MOD I level of assist. Patient will complete toilet transfer at: MOD I level of assist. Patient will complete toileting at: MOD I level of assist. Patient will perform bathing at: MOD I level of assist. Patient will perform Tub/Shower transfer at: - (DME prn sup) Patient will complete grooming at: MOD I level of assist. Patient will complete home management skills at: MOD I level of assist. Patient will achieve: - (curb.) Patient will have pain level of: of 3 or less Patient's skin will: remain intact and free from infection. Patient will receive: adequate nutrition. Discharge Planning Pt Prognosis for Sig. Practical Improv. w/in Reasonable Time: Good Estimated Length of stay (days): 14 Anticipated D/C Destination: Home with Home Health Was Preadmission Assessment Accurate?: Yes
[2024-07-22 20:45] VITALS: PULSE 89; RESP 16; O2SAT 96
[2024-07-22] MEDS: Doxepin Hydrochloride 10 MG Capsule PO (20:53)
[2024-07-23] MEDS: Acetaminophen 500 MG Tablet 1000 MG PO ×3 (05:32→20:01)
[2024-07-23 05:44] VITALS: BMI 17.7
[2024-07-23 06:00] VITALS: BP 107/43; PULSE 94; RESP 15; TEMP 36.9; O2SAT 96
--- NOTE | 2024-07-23 08:08 | PN.REHAB_ITS ---
Subjective Subjective Patient seen, examined. She was working with Daniela from OT, walking with walker, some pain with movement, but manageable. She appears to be in better spirits. She feels it is taking too long to recover, but it has only been 5 days. Objective Data Objective Data Vital Signs: Vital Signs Temp Pulse Resp BP Pulse Ox O2 Del Method 98.5 F 94 15 107/43 L 96 Room Air 07/23/24 06:00 07/23/24 06:00 07/23/24 06:00 07/23/24 06:00 07/23/24 06:00 07/23/24 06:00 Oxygen Delivery Method Room Air Weight: 52.9 kg Body Mass Index (BMI) 17.7 Intake & Output: Intake and Output for Last 24 Hours 07/21/24 07/22/24 07/23/24 23:59 23:59 23:59 Intake Total 270 / 270 1280 / 1280 200 / 200 Output Total 1250 / 1250 Balance 270 / 270 30 / 30 200 / 200 Lab / Micro Data 07/22/24 06:08 07/22/24 06:08 Indicators for Scoring Admitted with or Primary Diagnosis of CVA/Stroke: No Hx of CVA/Stroke: No Physical Exam Const alert General Appearance: cooperative HEENT normocephalic Eyes PERRL and EOMs intact bilaterally Neck supple, no JVD and no carotid bruits Resp normal respiratory effort, normal air movement and clear to auscultation bilaterally Cardio regular rate and regular rhythm GI normal to inspection, nondistended, normoactive bowel sounds, non-tender and non-distended Extremity normal capillary refill General Extremity: Negative for edema Skin no rashes or lesions noted General Skin Exam: no breakdown Psych affect normal Appearance: appropriate Assessment & Plan Assessment/Plan (1) Fracture of right hip: (2) Closed fracture of right superior pubic ramus: (3) Debility: (4) Squamous cell cancer, anus: (5) Vitamin D deficiency: PLAN: Plan 74 year old female with below past medical history hospitalized for right hip fracture, right pelvis fracture, underwent right hip hemiarthroplasty and ORIF calcar 07/19/[address] Vargas, admitted to for 3 hours daily rehabilitation, strengthening, prior to discharge home alone. * Debility - PT/OT. * Pain - Tylenol 1000mg q8, Oxycodone 5mg q4 prn pain (1-10), Ibuprofen 200mg q6 prn. * Bowel - senna/colace 2 tablets bid, Dulcolax 10mg pr x 1 prn, MOM 30mL po x 1 prn. * DVT prophylaxis - Xarelto 10mg daily thru 08/21/2024. * Osteoporosis - Alendronate 70mg qweek. * Vitamin D deficiency - D3 125mcg daily. * Nutrition - Ensure Plus 120mL tidcm, MVI 1 tablet daily. * Insomnia - Doxepin 10mg qhs.
[2024-07-23] MEDS: Senna/Docusate Sodium 1 Tablet 2 TABLET PO ×2 (08:10→20:02)
[2024-07-23] MEDS: Multivitamins,Therapeutic Tablet 1 TABLET PO (08:10)
[2024-07-23] MEDS: Na Biphos/Potassium Phosphate PACKET 1 PACKET PO ×2 (08:10→20:01)
[2024-07-23] MEDS: Cholecalciferol (Vit D3) 125 MCG CAPSULE (5,000 UNITS) PO (08:11)
[2024-07-23 08:20] VITALS: O2SAT 96
[2024-07-23 08:44] VITALS: RESP 16
[2024-07-23] MEDS: Rivaroxaban 10 MG Tablet PO (16:45)
[2024-07-23 18:00] VITALS: BP 113/55; PULSE 84; RESP 16; TEMP 37.1; O2SAT 96
[2024-07-23 19:55] VITALS: PULSE 84; RESP 16; O2SAT 96
[2024-07-23] MEDS: Doxepin Hydrochloride 10 MG Capsule PO (20:02)
[2024-07-23] MEDS: oxyCODONE 5 MG Tablet PO (20:02)
[2024-07-24] MEDS: Magnesium Hydroxide 30 ML UDC PO (04:01)
[2024-07-24] MEDS: Acetaminophen 500 MG Tablet 1000 MG PO ×3 (04:44→21:36)
[2024-07-24 05:00] VITALS: BP 122/69; PULSE 118; RESP 18; TEMP 37.5; O2SAT 95
--- NOTE | 2024-07-24 05:12 | NURSING ---
pt has been awake trying to have a bowel movement this hs, pt has been smearing stool in her attends several times this evening. pt given mom. bowel sounds are present x's 4 quads and straining to have a bowel movement when up to the bsc with little result. rn aware
[2024-07-24 05:59] VITALS: PULSE 101; TEMP 37.3
--- NOTE | 2024-07-24 06:00 | NURSING ---
pt vs were checked and ap was noted to be 118 and pt was running a temp of 99.5. rn made aware 0600 temp and ap was checked and were 99.1 and ap was 101 and regular. pt denied any sx of increased heart rate. rn made aware of new values
[2024-07-24] MEDS: Na Biphos/Potassium Phosphate PACKET 1 PACKET PO ×2 (07:56→21:37)
[2024-07-24] MEDS: Senna/Docusate Sodium 1 Tablet 2 TABLET PO (07:56)
[2024-07-24] MEDS: Cholecalciferol (Vit D3) 125 MCG CAPSULE (5,000 UNITS) PO (07:57)
[2024-07-24] MEDS: Multivitamins,Therapeutic Tablet 1 TABLET PO (07:57)
[2024-07-24] MEDS: 0.9% Saline Lock 10 ML Syringe IV (13:39)
[2024-07-24] MEDS: Rivaroxaban 10 MG Tablet PO (17:27)
[2024-07-24 17:30] VITALS: BP 101/53; PULSE 105; RESP 17; TEMP 37.2; O2SAT 95
[2024-07-24] MEDS: Ibuprofen 200 MG Tablet PO (21:36)
[2024-07-24] MEDS: oxyCODONE 5 MG Tablet PO (21:36)
[2024-07-24] MEDS: Doxepin Hydrochloride 10 MG Capsule PO (21:37)
[2024-07-24 21:47] VITALS: BP 95/60; PULSE 92; RESP 20; TEMP 36.6; O2SAT 99
[2024-07-25 06:00] VITALS: BP 103/47; PULSE 72; RESP 16; TEMP 36.6; O2SAT 97
[2024-07-25] MEDS: 0.9% Saline Lock 10 ML Syringe IV ×2 (06:40→22:03)
[2024-07-25] MEDS: Acetaminophen 500 MG Tablet 1000 MG PO ×3 (06:40→21:21)
[2024-07-25 06:52] VITALS: O2SAT 97
[2024-07-25] MEDS: Na Biphos/Potassium Phosphate PACKET 1 PACKET PO ×2 (08:06→21:21)
[2024-07-25] MEDS: Multivitamins,Therapeutic Tablet 1 TABLET PO (08:06)
[2024-07-25] MEDS: Cholecalciferol (Vit D3) 125 MCG CAPSULE (5,000 UNITS) PO (08:06)
[2024-07-25 10:00] VITALS: RESP 17; O2SAT 97
[2024-07-25] MEDS: Rivaroxaban 10 MG Tablet PO (16:34)
[2024-07-25 16:55] VITALS: BP 104/50; PULSE 91; RESP 17; TEMP 36.6; O2SAT 98
[2024-07-25] MEDS: Doxepin Hydrochloride 10 MG Capsule PO (21:21)
[2024-07-26] MEDS: Acetaminophen 500 MG Tablet 1000 MG PO ×3 (05:39→21:15)
[2024-07-26 06:00] VITALS: BP 112/47; PULSE 91; RESP 17; TEMP 36.7; O2SAT 96
--- NOTE | 2024-07-26 07:46 | PN.REHAB_ITS ---
Subjective Subjective Patient seen, examined. Her pain is controlled, she has been getting up with therapy, she is eating breakfast, no new complaints. Objective Data Objective Data Vital Signs: Vital Signs Temp Pulse Resp BP Pulse Ox O2 Del Method 98.0 F 91 17 112/47 L 96 Room Air 07/26/24 06:00 07/26/24 06:00 07/26/24 06:00 07/26/24 06:00 07/26/24 06:00 07/26/24 06:00 Oxygen Delivery Method Room Air Weight: 52.9 kg Body Mass Index (BMI) 17.7 Intake & Output: Intake and Output for Last 24 Hours 07/24/24 07/25/24 07/26/24 23:59 23:59 23:59 Intake Total 2750 / 2750 1960 / 1960 300 / 300 Output Total 901 / 901 300 / 300 800 / 800 Balance 1849 / 1849 1660 / 1660 -500 / -500 Lab / Micro Data 07/22/24 06:08 07/22/24 06:08 Indicators for Scoring Admitted with or Primary Diagnosis of CVA/Stroke: No Hx of CVA/Stroke: No Physical Exam Const alert General Appearance: cooperative HEENT normocephalic Eyes PERRL and EOMs intact bilaterally Neck supple, no JVD and no carotid bruits Resp normal respiratory effort, normal air movement and clear to auscultation bilaterally Cardio regular rate and regular rhythm GI normal to inspection, nondistended, normoactive bowel sounds, non-tender and non-distended Extremity normal capillary refill General Extremity: Negative for edema Skin no rashes or lesions noted General Skin Exam: no breakdown Psych affect normal Appearance: appropriate Assessment & Plan Assessment/Plan (1) Fracture of right hip: (2) Closed fracture of right superior pubic ramus: (3) Debility: (4) Squamous cell cancer, anus: (5) Vitamin D deficiency: PLAN: Plan 74 year old female with below past medical history hospitalized for right hip fracture, right pelvis fracture, underwent right hip hemiarthroplasty and ORIF calcar 07/19/[address] Vargas, admitted to for 3 hours daily rehabilitation, strengthening, prior to discharge home alone. * Debility - PT/OT. * Pain - Tylenol 1000mg q8, Oxycodone 5mg q4 prn pain (1-10), Ibuprofen 200mg q6 prn. * Bowel - senna/colace 2 tablets bid, Dulcolax 10mg pr x 1 prn, MOM 30mL po x 1 prn. * DVT prophylaxis - Xarelto 10mg daily thru 08/21/2024. * Osteoporosis - Alendronate 70mg qweek. * Vitamin D deficiency - D3 125mcg daily. * Nutrition - Ensure Plus 120mL tidcm, MVI 1 tablet daily. * Insomnia - Doxepin 10mg qhs.
[2024-07-26] MEDS: Multivitamins,Therapeutic Tablet 1 TABLET PO (08:32)
[2024-07-26] MEDS: Na Biphos/Potassium Phosphate PACKET 1 PACKET PO ×2 (08:33→21:15)
[2024-07-26] MEDS: Cholecalciferol (Vit D3) 125 MCG CAPSULE (5,000 UNITS) PO (08:35)
--- NOTE | 2024-07-26 09:55 | CASEMGMT ---
Team meeting held with pt present. PT/OT/SN/MD provided updates on pt progress since admission to the Rehab unit. Pt is making progress with therapies and participating well. Pt lives at home alone in a one story apartment and plans to return home at time of discharge. Pt was independent with ADLS/IADLS prior to hospitalization. SW provided information on Medicare coverage of Inpatient Rehab and will follow for discharge planning at the appropriate time. Will continue with treatment plan at this time and ReTeam next week. ASHWIN Contreras
--- NOTE | 2024-07-26 10:33 | CASEMGMT ---
Social Work SW met with pt and notified that Medicare has allowed for 14 days with anticipated dc on 08/04. Pt is understanding and agreeable. ASHWIN Contreras
[2024-07-26] MEDS: Rivaroxaban 10 MG Tablet PO (15:46)
[2024-07-26 18:00] VITALS: BP 120/54; PULSE 90; RESP 17; TEMP 36.4; O2SAT 98
[2024-07-26] MEDS: Doxepin Hydrochloride 10 MG Capsule PO (21:15)
[2024-07-26] MEDS: Senna/Docusate Sodium 1 Tablet 2 TABLET PO (21:15)
[2024-07-26 22:00] VITALS: PULSE 90; RESP 17; O2SAT 95
[2024-07-27] MEDS: Alendronate Sodium 70 MG Tablet PO (05:50)
[2024-07-27 06:00] VITALS: BP 117/68; PULSE 83; RESP 17; TEMP 36.9; O2SAT 96
[2024-07-27] MEDS: Acetaminophen 500 MG Tablet 1000 MG PO ×3 (06:24→20:41)
[2024-07-27] MEDS: Multivitamins,Therapeutic Tablet 1 TABLET PO (08:09)
[2024-07-27] MEDS: Na Biphos/Potassium Phosphate PACKET 1 PACKET PO (08:09)
[2024-07-27] MEDS: Cholecalciferol (Vit D3) 125 MCG CAPSULE (5,000 UNITS) PO (08:09)
--- NOTE | 2024-07-27 08:26 | PN.REHAB_ITS ---
Subjective Subjective Patient seen, examined. She has a cough today, but otherwise, no new problems, concerns, issues, complaints. Her pain is controlled, progressing with therapy. Objective Data Objective Data Vital Signs: Vital Signs Temp Pulse Resp BP Pulse Ox O2 Del Method 98.5 F 83 17 117/68 96 Room Air 07/27/24 06:00 07/27/24 06:00 07/27/24 06:00 07/27/24 06:00 07/27/24 06:00 07/27/24 06:00 Oxygen Delivery Method Room Air Weight: 52.9 kg Body Mass Index (BMI) 17.7 Intake & Output: Intake and Output for Last 24 Hours 07/25/24 07/26/24 07/27/24 23:59 23:59 23:59 Intake Total 1960 / 1960 1050 / 1050 600 / 600 Output Total 300 / 300 800 / 800 Balance 1660 / 1660 250 / 250 600 / 600 Lab / Micro Data 07/22/24 06:08 07/22/24 06:08 Indicators for Scoring Admitted with or Primary Diagnosis of CVA/Stroke: No Hx of CVA/Stroke: No Physical Exam Const alert General Appearance: cooperative HEENT normocephalic Eyes PERRL and EOMs intact bilaterally Neck supple, no JVD and no carotid bruits Resp normal respiratory effort, normal air movement and clear to auscultation bilaterally Cardio regular rate and regular rhythm GI normal to inspection, nondistended, normoactive bowel sounds, non-tender and non-distended Extremity normal capillary refill General Extremity: Negative for edema Skin no rashes or lesions noted General Skin Exam: no breakdown Psych affect normal Appearance: appropriate Assessment & Plan Assessment/Plan (1) Fracture of right hip: (2) Closed fracture of right superior pubic ramus: (3) Debility: (4) Squamous cell cancer, anus: (5) Vitamin D deficiency: PLAN: Plan 74 year old female with below past medical history hospitalized for right hip fracture, right pelvis fracture, underwent right hip hemiarthroplasty and ORIF calcar 07/19/[address] Vargas, admitted to for 3 hours daily rehabilitation, strengthening, prior to discharge home alone. * Debility - PT/OT. * Pain - Tylenol 1000mg q8, Oxycodone 5mg q4 prn pain (1-10), Ibuprofen 200mg q6 prn. * Bowel - senna/colace 2 tablets bid, Dulcolax 10mg pr x 1 prn, MOM 30mL po x 1 prn. * DVT prophylaxis - Xarelto 10mg daily thru 08/21/2024. * Osteoporosis - Alendronate 70mg qweek. * Vitamin D deficiency - D3 125mcg daily. * Nutrition - Ensure Plus 120mL tidcm, MVI 1 tablet daily. * Insomnia - Doxepin 10mg qhs. * Cough - Robitussin DM 10mL po q6 prn cough.
[2024-07-27 15:09] VITALS: BMI 17.1
[2024-07-27] MEDS: Rivaroxaban 10 MG Tablet PO (16:44)
[2024-07-27 18:00] VITALS: BP 104/54; PULSE 88; RESP 16; TEMP 36.6; O2SAT 95
[2024-07-27] MEDS: Doxepin Hydrochloride 10 MG Capsule PO (20:41)
[2024-07-27 22:00] VITALS: PULSE 88; RESP 16; O2SAT 95
[2024-07-28 06:00] VITALS: BP 123/63; PULSE 87; RESP 16; TEMP 36.7; O2SAT 94
[2024-07-28] MEDS: Acetaminophen 500 MG Tablet 1000 MG PO ×3 (06:20→21:10)
[2024-07-28] MEDS: Cholecalciferol (Vit D3) 125 MCG CAPSULE (5,000 UNITS) PO (08:05)
[2024-07-28] MEDS: Multivitamins,Therapeutic Tablet 1 TABLET PO (08:05)
--- NOTE | 2024-07-28 08:15 | PN.REHAB_ITS ---
Subjective Subjective Patient seen, examined. No acute events overnight. She states it is hard to get comfortable at night, I reassured her her bones are healing and this will improve, she is progressing with therapy. Objective Data Objective Data Vital Signs: Vital Signs Temp Pulse Resp BP Pulse Ox O2 Del Method 98.1 F 87 16 123/63 H 94 Room Air 07/28/24 06:00 07/28/24 06:00 07/28/24 06:00 07/28/24 06:00 07/28/24 06:00 07/28/24 06:00 Oxygen Delivery Method Room Air Weight: 51.075 kg Body Mass Index (BMI) 17.1 Intake & Output: Intake and Output for Last 24 Hours 07/26/24 07/27/24 07/28/24 23:59 23:59 23:59 Intake Total 1050 / 1050 2120 / 2120 120 / 120 Output Total 800 / 800 300 / 300 Balance 250 / 250 1820 / 1820 120 / 120 Lab / Micro Data 07/22/24 06:08 07/22/24 06:08 Micro: Microbiology 07/27/24 09:50 Stool Stool Occult Blood (JAZ) - Final Indicators for Scoring Admitted with or Primary Diagnosis of CVA/Stroke: No Hx of CVA/Stroke: No Physical Exam Const alert General Appearance: cooperative HEENT normocephalic Eyes PERRL and EOMs intact bilaterally Neck supple, no JVD and no carotid bruits Resp normal respiratory effort, normal air movement and clear to auscultation bilaterally Cardio regular rate and regular rhythm GI normal to inspection, nondistended, normoactive bowel sounds, non-tender and non-distended Extremity normal capillary refill General Extremity: Negative for edema Skin no rashes or lesions noted General Skin Exam: no breakdown Psych affect normal Appearance: appropriate Assessment & Plan Assessment/Plan (1) Fracture of right hip: (2) Closed fracture of right superior pubic ramus: (3) Debility: (4) Squamous cell cancer, anus: (5) Vitamin D deficiency: PLAN: Plan 74 year old female with below past medical history hospitalized for right hip fracture, right pelvis fracture, underwent right hip hemiarthroplasty and ORIF calcar 07/19/[address] Vargas, admitted to for 3 hours daily rehabilitation, strengthening, prior to discharge home alone. * Debility - PT/OT. * Pain - Tylenol 1000mg q8, Oxycodone 5mg q4 prn pain (1-10), Ibuprofen 200mg q6 prn. * Bowel - senna/colace 2 tablets bid, Dulcolax 10mg pr x 1 prn, MOM 30mL po x 1 prn. * DVT prophylaxis - Xarelto 10mg daily thru 08/21/2024. * Osteoporosis - Alendronate 70mg qweek. * Vitamin D deficiency - D3 125mcg daily. * Nutrition - Ensure Plus 120mL tidcm, MVI 1 tablet daily. * Insomnia - Doxepin 10mg qhs. * Cough - Robitussin DM 10mL po q6 prn cough.
[2024-07-28] MEDS: Rivaroxaban 10 MG Tablet PO (16:12)
[2024-07-28 17:38] VITALS: BP 111/59; PULSE 76; RESP 16; TEMP 36.9; O2SAT 96
--- NOTE | 2024-07-28 18:21 | NURSING ---
pt intake is poor. refusing to eat most of meals or orders a boiled egg and only eat half of it. ENHP order but is giving pt diarrhea when she drinks it. educated pt on the need to eat solid food for healing and overall health. voices understanding. Will enter dietitian consult.
[2024-07-28] MEDS: Doxepin Hydrochloride 10 MG Capsule PO (21:10)
[2024-07-29 06:00] VITALS: BP 104/54; PULSE 81; RESP 16; TEMP 36.7; O2SAT 95; BMI 17.2
[2024-07-29] MEDS: Acetaminophen 500 MG Tablet 1000 MG PO ×3 (06:13→20:54)
[2024-07-29] MEDS: Cholecalciferol (Vit D3) 125 MCG CAPSULE (5,000 UNITS) PO (07:35)
[2024-07-29] MEDS: Multivitamins,Therapeutic Tablet 1 TABLET PO (07:35)
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
[2024-07-29] MEDS: Rivaroxaban 10 MG Tablet PO (16:15)
[2024-07-29 18:00] VITALS: BP 103/45; PULSE 82; RESP 14; TEMP 37.1; O2SAT 95
[2024-07-29] MEDS: Doxepin Hydrochloride 10 MG Capsule PO (20:54)
[2024-07-30 05:56] VITALS: BP 119/57; PULSE 82; RESP 16; TEMP 36.2; O2SAT 94
[2024-07-30] MEDS: Acetaminophen 500 MG Tablet 1000 MG PO ×3 (05:57→20:03)
[2024-07-30] MEDS: Cholecalciferol (Vit D3) 125 MCG CAPSULE (5,000 UNITS) PO (08:05)
[2024-07-30] MEDS: Multivitamins,Therapeutic Tablet 1 TABLET PO (08:05)
--- NOTE | 2024-07-30 13:28 | CASEMGMT ---
Addendum entered by Michelle Pastor 08/02/24 08:59: [facility] can accept, requesting to add SN. SN added to order. Original Note: Social Work SW met with patient to discuss DC on 08/04, informing pt there will not be a Team meeting held prior to DC. Pt confirmed she can DC home alone, but not sure how it will go until I try. SW offered to coordinate skilled HHC. Pt agreeable. SW offered list of skilled HHC agencies within geographical area, INN with insurance, that include quality and resource data via [employer] guide. Pt denied and states she has no preference. SW offered [facility]HC. Pt agreeable. Pt denied DME needs and confirmed she has transport home. - SW phoned referral to [facility] for PT/OT/SW. Plan: DC home alone 08/04, [facility] PT/OT/SW Michelle Pastor PROCESS IMPROVEMENT MANAGER CLINICAL RESOURCE DIRECTOR
[2024-07-30] MEDS: Rivaroxaban 10 MG Tablet PO (16:31)
[2024-07-30 17:40] VITALS: BP 100/47; PULSE 78; RESP 16; TEMP 36.6; O2SAT 95
[2024-07-30] MEDS: Doxepin Hydrochloride 10 MG Capsule PO (20:03)
[2024-07-31] MEDS: Acetaminophen 500 MG Tablet 1000 MG PO ×3 (05:30→22:00)
[2024-07-31 06:00] VITALS: BP 123/65; PULSE 83; RESP 16; TEMP 36.4; O2SAT 94
[2024-07-31] MEDS: Cholecalciferol (Vit D3) 125 MCG CAPSULE (5,000 UNITS) PO (08:12)
[2024-07-31] MEDS: Multivitamins,Therapeutic Tablet 1 TABLET PO (08:12)
[2024-07-31] MEDS: Rivaroxaban 10 MG Tablet PO (16:38)
[2024-07-31 17:38] VITALS: BP 108/51; PULSE 79; RESP 17; TEMP 36.6; O2SAT 97
[2024-07-31] MEDS: Doxepin Hydrochloride 10 MG Capsule PO (22:00)
[2024-08-01 04:56] VITALS: BMI 16.7
[2024-08-01 05:04] VITALS: BP 108/44; PULSE 79; RESP 17; TEMP 37.2; O2SAT 94
[2024-08-01] MEDS: Acetaminophen 500 MG Tablet 1000 MG PO ×3 (05:05→20:55)
[2024-08-01] MEDS: Cholecalciferol (Vit D3) 125 MCG CAPSULE (5,000 UNITS) PO (09:36)
[2024-08-01] MEDS: Multivitamins,Therapeutic Tablet 1 TABLET PO (09:36)
[2024-08-01] MEDS: oxyCODONE 5 MG Tablet PO ×2 (14:21→20:55)
[2024-08-01 16:05] VITALS: BP 104/53; PULSE 75; RESP 16; TEMP 37.3
[2024-08-01] MEDS: Rivaroxaban 10 MG Tablet PO (16:11)
[2024-08-01] MEDS: Doxepin Hydrochloride 10 MG Capsule PO (20:55)
[2024-08-02] MEDS: Acetaminophen 500 MG Tablet 1000 MG PO ×3 (05:41→22:00)
[2024-08-02 05:45] VITALS: BP 100/54; PULSE 86; RESP 17; TEMP 36.8; O2SAT 94
[2024-08-02] MEDS: Multivitamins,Therapeutic Tablet 1 TABLET PO (08:24)
[2024-08-02] MEDS: Cholecalciferol (Vit D3) 125 MCG CAPSULE (5,000 UNITS) PO (08:24)
[2024-08-02] MEDS: Rivaroxaban 10 MG Tablet PO (17:35)
[2024-08-02 18:00] VITALS: BP 104/37; PULSE 84; RESP 16; TEMP 36.7; O2SAT 95
[2024-08-02 22:00] VITALS: RESP 16
[2024-08-02] MEDS: Doxepin Hydrochloride 10 MG Capsule PO (22:00)
[2024-08-03] MEDS: Acetaminophen 500 MG Tablet 1000 MG PO ×3 (05:53→21:00)
[2024-08-03] MEDS: Alendronate Sodium 70 MG Tablet PO (05:53)
[2024-08-03 06:00] VITALS: BP 153/60; PULSE 64; RESP 16; TEMP 36.4; O2SAT 95
[2024-08-03] MEDS: Cholecalciferol (Vit D3) 125 MCG CAPSULE (5,000 UNITS) PO (08:28)
[2024-08-03] MEDS: Multivitamins,Therapeutic Tablet 1 TABLET PO (08:28)
--- NOTE | 2024-08-03 10:11 | PCM.PROGNOTE ---
Subjective Subjective Afebrile VSS -blood pressures over the past 48 hours have ranged from 100/54 to 108/51. Blood pressure was mildly elevated today at 153/60 but this is an outlier. Heart rate is within normal limits. Maintaining appropriate oxygen saturation on RA Oral intake - FOOD poor to fair FLUIDS fair to good Last bowel movement was on 07/30/2024. Has senna ordered as needed but has not received any senna. Discussed with nursing - no problems that need addressed. Sleeping well. Poor appetite. Ambulating with a walker. Incontinent of urine. Reviewed the THERAPY notes Medication list reviewed. Taking Xarelto 10 mg daily for DVT prophylaxis. End date will be 08/21/2024. Last took Oxycodone on 08/01 and had 2 that day. She is on Tylenol 1 g every 8 hours for pain control. Denies falling but, had a R hip fracture. Had R groin pain for 3 weeks and a ot of pain with weight bearing and did not seek attention until 07/18/24 when she presented to the ED. plain x-rays of the left hip and pelvis at admission to the emergency department showed a right hip fracture at the femoral neck and a fracture of the superior right pubic ramus near the pubic symphysis. Dr. Vargas performed a right hip cemented hemiarthroplasty and ORIF on 07/19/24. No bone was sent for pathology. 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 Oncologist was Dr. Hathaway. She was treated with radiation and chemotherapy but she stopped this because she believes that medications/radiation can kill you and cause more harm than good. Has never had a DEXA. TAkes vitamin D at home. Objective Data Objective Data Vital Signs: Vital Signs Temp Pulse Resp BP Pulse Ox O2 Del Method FiO2 97.5 F L 64 16 153/60 H 95 Room Air 96 08/03/24 06:00 08/03/24 06:00 08/03/24 06:00 08/03/24 06:00 08/03/24 06:00 08/03/24 06:00 08/01/24 16:05 Oxygen Delivery Method Room Air Weight: 110 lb 8 oz Body Mass Index (BMI) 16.7 Intake & Output: Intake and Output for Last 24 Hours 04/13/25 04/14/25 04/15/25 23:59 23:59 23:59 Intake Total 1320 / 1320 2300 / 2300 400 / 400 Output Total 800 / 800 250 / 250 Balance 520 / 520 2049 / 2049 400 / 400 Lab / Micro Data 08/03/24 11:30 08/03/24 11:30 Micro: Microbiology 07/27/24 09:50 Stool Stool Occult Blood (JAZ) - Final Physical Exam Const alert and no apparent distress Constitutional Narrative: Lying in bed and appears comfortable. HEENT Mouth: dry mucous membranes Resp clear to auscultation bilaterally Effort and Inspection: Negative for tachypneic or respiratory distress Cardio regular rate, regular rhythm and no gallops GI normal to inspection, nondistended, normoactive bowel sounds, soft to palpation and non-tender Extremity General Extremity: Negative for edema Skin General Skin Exam: no breakdown Rashes: no rashes Psych Psych Narrative: Seems paranoid. Very distrustful of doctors and pharmaceutical companies. Was not sleeping well at night but, sleeping better on doxepin. Assessment & Plan Assessment/Plan (1) Debility: (2) Fracture of right hip: QUALIFIERS: Encounter type: subsequent encounter Fracture type: closed (3) History of right hip hemiarthroplasty: (4) Acute blood loss anemia: (5) Thrombocytosis: (6) Hypophosphatemia: (7) Orthostatic hypotension: PLAN: Plan 1. Continue therapy 2. CBC with differential, BMP, UA today. Will straight cath for UA. 3. Check orthostatics today and encourage patient to increase her fluid intake consistently. 4. Discharged planned for tomorrow. 5. Has only had 1 postvoid residual since admission. She is incontinent of urine. Will check additional PVRs prior to discharge. 6. Laxatives today and change the senna to scheduled. Will be going home alone. She will have [facility] health care at discharge. No DME needs. 7. Encouraged increased fluid intake. 8. She is willing to take Fosamax but, she will not agree to Prolia. she is also willing to have a DEXA as an OP. will give a requisition to obtain this an OP. 9. Dr. Mckeon will be her new PCP. Has not seen previous PCP in 10 years. Charges/Coding Visit Charges Inpatient E&M: 58102 Subs Hosp L2
[2024-08-03 10:13] VITALS: BP 106/44; BP 107/53; BP 131/42; PULSE 104; PULSE 89; PULSE 94
[2024-08-03] MEDS: Magnesium Hydroxide 30 ML UDC PO (11:00)
[2024-08-03 11:43] LABS: Absolute Lymphocyte Count 1.39 X10^3/uL (0.83-4.51); Basophil# 0.04 X10^3/uL; Basophil% 0.5 % (0-1); Hematocrit 30.8 % (37-47); Hemoglobin 10.1 g/dL (12.0-15.0); Lymphocyte # 1.39 X10^3/ul (0.83-4.51); Mean Corp Hgb Conc 32.8 g/dL (32-36); Mean Corpuscular Hgb 30.9 pg (27.0-32.0); Mean Corpuscular Volume 94.2 fL (81-99); Mean Platelet Vol. 9.2 fl (6.2-12.0); Monocyte# 0.72 X10^3/uL; Monocyte% 8.8 % (0-10); NRBC Flagged by Analyzer 0 % (0-5); Neutrophil # 6.01 X10^3/uL (2.7-7.7); Neutrophil % 73.2 % (47-70); Platelet Count 501 K/mm3 (150-450); RBC Distribution Width CV 15.3 % (11.6-14.6); RBC Distribution Width SD 51.6 fl (35.1-43.9); Red Blood Count 3.27 M/mm3 (4.2-5.4); White Blood Count 8.2 K/mm3 (4.4-11.0)
[2024-08-03 12:26] LABS: Anion Gap 11 (5-15); BUN 15 mg/dL (4-19); BUN/Creat Ratio 25.1 RATIO (10-20); Calcium,Total 9.3 mg/dL (7.6-11.0); Carbon Dioxide 23.8 mmol/L (21.0-32.0); Chloride 103 mmol/L (98-108); Creatinine, Serum 0.59 mg/dL (0.70-1.20); EST Glomerular Filtration Rate 93 (>60); Estimated Creatinine Clearance 47.34 ml/min (50-250); Glucose 103 mg/dL (70-99); Potassium 3.7 mmol/L (3.3-5.1); Sodium Level 138 mmol/L (133-145)
[2024-08-03 12:55] LABS: Bacteria 0 SEEN /hpf (None Seen); Mucous, Urine 0 SEEN /hpf (<or=2+); Squamous Epithelial Cells - UA 0 SEEN /hpf (5-10)
[2024-08-03 12:57] LABS: Color, Urine Yellow (Yellow); Glucose, Dipstick Normal (Normal); Ketone-Dipstick Negative (Negative); Leukocyte Esterase-Dipstick Negative /ul (Negative); Nitrite-Dipstick Negative (Negative); Occult Blood-Urine Negative /ul (Negative); Protein-Dipstick 30 mg/dl (Negative); Specific Gravity, Urine 1.015 (1.002-1.030); Urine Bilirubin Dipstick Negative (Negative); Urine Clarity Clear (Clear); Urine Urobilinogen 1 mg/dl (Normal)
[2024-08-03 13:13] LABS: Red Blood Cells-Urine 0-5 SEEN /hpf (0-5); White Blood Cells 0-5 SEEN /hpf (0-5)
[2024-08-03 13:14] LABS: Fine Granular Cast- Urine 0-5 SEEN /lpf (0-5); Hyaline Cast 0-5 SEEN /lpf (0-5)
--- NOTE | 2024-08-03 13:30 | DCINST_ITS ---
Discharge Instructions Diet Discharge Diet: No restrictions DC O2, CPAP, BIPAP needs Home O2 Discharge instructions: No Dressing / Incision Discharge Activity: May Not Drive, May Shower and Use Walker Weight Bearing Status: Partial weight bearing (Right lower extremity.) Dressing / Incision Call your doctor if your incision/area has: Continuous Slow Oozing, Sudden Increased Bleeding, Increased Pain/ Swelling, Increased Redness, Foul Smelling Discharge and Swelling at the incision site Call your doctor if you observe: Fever of 101 or Higher, Inability to have a bowel movement, Shortness of breath, Dizziness, Fainting spells, Swelling in the ankles, Chest pain, Increased palpitations (irregular heartbeat), Calf discomfort and Uncontrolled pain Suture Line Care: Avoid Pulling/Pushing and Avoid Pinching/Bending Cleanse incision/area with: Soap & Water and - (Keep incision open to air. May apply a dry dressing if desired. No tub baths. ) Follow Up Care Please Follow Up With: Robin Vargas MD When: 08/05/24. You will also be following up with Dr. Mckeon for primary care. Appts are listed later in this document. Test Results: Test results from this visit will be discussed in further detail at your follow- up appointment, if applicable. Pending Tests Upon Discharge: none Discharge Plan Admission Admit Date/Time: 07/21/24 18:15 Primary Reason for Your Visit: Debility secondary to nontraumatic right femoral neck fracture. Attending Provider: Neema Walker Primary Care Provider: Lyubov An Consulting Providers: Tej Fried Chi Instructions Patient Instructions: Caring for Your Incision Additional Instructions / Restrictions: 1. Appts have been scheduled for you to follow up with Dr. Vargas (orthopedic surgery) and with Dr. Mckeon (new PCP). 2. The fracture of the R hip was non-traumatic. With your hx of anal cancer this raises a concern for possible metastatic bone disease. You could also have severe osteoporosis. I think it would be a good idea to have a bone density study to see if you have osteoporosis. I am giving you a requisition to obtain a DEXA (this is a bone density test). You were started on Fosamax in the hospital and I am going to continue this when you go home. The biggest side effect of this drug is reflux/heartburn. Your vitamin D level is normal so keep taking the Vitamin D supplement daily that you were taking at home. 4. Tylenol seems to work to control your pain. You have been getting 2 500 mg Tylenol tablets every 8 hours in the hospital. You have taken a few doses of Oxycodone while on rehab. People tend to do more once they get home so I am sending you home with a prescription for some Oxycodone to have on hand in the event that you need something stronger than Tylenol for pain. Oxycodone can cause constipation. If you are having problems with constipation I suggest taking Metamucil or Miralax.....these are stool softeners that can be purchased at any pharmacy without a prescription. You could also increase the fiber in your diet. 5. You are on a medication called Rivaroxaban (also called Xarelto) while in the hospital. You are at increased risk for blood clots in the legs for about 1 month after hip surgery. You can take this medication once a day. If you choose not to take this medication then you could take a baby aspirin twice a day until 08/22/24 to help prevent clots. 6. If you have questions after you leave rehab please do not hesitate to call me at [phone]. Discharge Orders/Prescriptions Prescriptions: New oxycodone 5 mg Tablet 5 mg PO Q4H PRN (Reason: Pain Score 1-10) 7 Days Qty: 14 0RF Continued ibuprofen 200 mg capsule 200 mg PO Q6H PRN (Reason: pain) vitamin D3-vitamin K2 125-90 mcg capsule 1 cap PO DAILY cod liver oil Oil 15 ml PO DAILY multivitamin Tablet 1 tab PO DAILY milk thistle 150 mg capsule 150 mg PO DAILY Rx Instructions: give with meal/snack acetaminophen 500 mg Tablet 1,000 mg PO Q8 alendronate 70 mg Tablet 70 mg PO Q7D@0700 Qty: 4 0RF Xarelto 10 mg Tablet 10 mg PO DINNER Qty: 18 0RF Discontinued oxycodone 5 mg Tablet 2.5 mg PO Q4H PRN PRN (Reason: Pain Score 1-10) 3 Days Qty: 7 0RF Other Ambulatory Orders: Dexa Bone Density Study (Routine) Timeframe: 1 Month Facility: [facility] - Location: [facility] Ordered By: Dr. Neema Walker Referrals / Follow Up: Jonah Mckeon MD [Med Staff - Active Staff] - 08/06/24 2:30 pm Robin Vagras MD [Med Staff - Active Staff] - 08/05/24 10:30 am Disposition Disposition (needs filled in before D/C Order can be placed): Home Health Service
--- NOTE | 2024-08-03 13:57 | DS.PCM_ITS ---
Providers Date of Admission: 07/21/24 Date of Discharge: 08/04/24 Primary Care Physician: Dr. Jonah Fried Reason For Visit: RIGHT HIP FRACTURE/RIGHT HIP ORIF Diagnosis Discharge Diagnosis (1) Debility: Status: Acute Code(s): R53.81 - Other malaise (2) Fracture of right hip: Status: Acute Code(s): S72.001A - Fracture of unspecified part of neck of right femur, initial encounter for closed fracture Qualifiers: Encounter type: subsequent encounter Fracture type: closed Plan: Nontraumatic. Suspect pathologic fracture. (3) History of right hip hemiarthroplasty: Status: Acute Code(s): Z96.641 - Presence of right artificial hip joint Plan: 07/19/[address] Robin Vargas (4) Acute blood loss anemia: Status: Acute Code(s): D62 - Acute posthemorrhagic anemia Plan: Hemoglobin is stable and 10.1 at the time of discharge. (5) Thrombocytosis: Status: Acute Code(s): D75.839 - Thrombocytosis, unspecified (6) Hypophosphatemia: Status: Acute Code(s): E83.39 - Other disorders of phosphorus metabolism Plan: ASYMPTOMATIC, MILD....NO NEED TO TREAT. (7) Orthostatic hypotension: Status: Acute Code(s): I95.1 - Orthostatic hypotension Plan: Not on a diuretic or any antihypertensive. Encouraged her to increase fluid intake. (8) Underweight due to inadequate caloric intake: Status: Acute Code(s): R63.6 - Underweight (9) Underweight (BMI < 18.5): Status: Acute Code(s): R63.6 - Underweight; Z68.1 - Body mass index [BMI] 19.9 or less, adult Plan: Due to poor intake Plan 1. DC home 08/04/24 - self care 2. [facility] home health care at discharge 3. No DME needs 4. Appointments have been scheduled for follow-up with Dr. Reynaga and Dr. Jonah Mckeon. 5. A requisition was given to obtain a DEXA within the next month. Medications at Discharge Home Medications ibuprofen 200 mg capsule 200 mg PO Q6H PRN pain 01/03/20 vitamin D3 125 mcg (5,000 unit)-vitamin K2 90 mcg capsule 1 cap PO DAILY supplement 07/18/24 cod liver oil 15 ml PO DAILY SUPPLEMENT 07/19/24 milk thistle 150 mg capsule 150 mg PO DAILY SUPPLEMENT 07/19/24 multivitamin 1 tab PO DAILY SUPPLEMENT 07/19/24 acetaminophen 500 mg tablet 1,000 mg PO Q8 pain 07/21/24 alendronate 70 mg tablet 70 mg PO Q7D@0700 osteopenia #4 tabs 08/03/24 rivaroxaban 10 mg tablet (Xarelto) 10 mg PO DINNER DVT prophylaxix #18 tabs 08/03/24 Hospital Course Operations - (Cemented hemiarthroplasty of the right hip on 07/19/[address] Robin Vargas.) Procedures None Summary of Care Provided Minutes Spent on Discharge: 30 Hospital Course: Pt is a 74 YO female who presented to the ED at [facility] on 07/18/24 with c/o severe R groin pain that had been present for 3 weeks. She denied trauma. Xrays revealed a R hip fracture. Dr. Vargas was consulted and she underwent a R hip danika-arthroplasty on 07/19/24. Pt has a hx of squamous cell cancer of the anus diagnosed in 2014. She stopped chemo and radiation and has not had any follow up care for several years. I presume the fracture is more likely than not pathologic since she had no falls/trauma. No pathology was obtained. She was transferred to the acute inpt rehab unit at [facility] on 07/21/2024 for 3 hours of therapy daily to restore function/independence at or near her level prior to the fracture. She was taking Xarelto 10 mg daily for DVT prophylaxis. Vitamin D level was normal at 83.7. She will continue her vitamin D supplement postdischarge. She was started on Fosamax during her hospital admission and tolerated this with no adverse side effects such as heartburn/reflux. Pain was adequately controlled with Tylenol. At the time of discharge she had ambulated up to 175 feet with a front wheeled walker at mod I. She was mod I for transfers from various surfaces. She was mod I with met bed mobility. A curb step was attempted however the patient was unable to maintain toe-touch weightbearing of the right lower extremity and the attempt was aborted. At the time of discharge she was independent on modified with all activities of daily living. We did recommend supervision with tub/shower transfer for at least the first week or so. She was discharged on 08/04/2024 to her home and will have home health care with [facility]. Appointment was scheduled for her with Dr. Vargas for follow-up and she will also follow-up with Dr. Jonah Mckeon for primary care. Physical Exam Const alert and no apparent distress Constitutional Narrative: Lying in bed and appears comfortable. Nutritional Appearance: underweight HEENT head/scalp atraumatic Mouth: dry mucous membranes Eyes PERRL, EOMs intact bilaterally, conjunctivae normal and no scleral icterus Eyes Narrative: No discharge from the eyes Neck supple Chest Chest: symmetrical chest wall rise Resp clear to auscultation bilaterally Effort and Inspection: Negative for tachypneic or respiratory distress Cardio regular rate, regular rhythm, no rub and no gallops Cardio Narrative: No ectopy GI normal to inspection, nondistended, normoactive bowel sounds, soft to palpation and non-tender Extremity no calf tenderness and no pedal edema General Extremity: Negative for edema Skin General Skin Exam: no breakdown Rashes: no rashes Psych Psych Narrative: Seems paranoid. Very distrustful of doctors and pharmaceutical companies. Was not sleeping well at night but, sleeping better on doxepin. Weight / BMI Weight Weight: 108 lb 6.4 oz Body Mass Index (BMI) 16.4 ABG / Lab / Microbiology Data 08/03/24 11:30 08/03/24 11:30 Laboratory: Laboratory Results - last 24 hr 08/03/24 11:17: Urine Color Yellow, Urine Clarity Clear, Urine pH 6.0, Ur Specific [place] 1.015, Urine Protein 30 H, Urine Glucose (UA) Normal, Urine Ketones Negative, Urine Occult Blood Negative, Urine Nitrite Negative, Urine Bilirubin Negative, Urine Urobilinogen 1 H, Ur Leukocyte Esterase Negative, Urine RBC 0-5 SEEN, Urine WBC 0-5 SEEN, Ur Squamous Epith Cells 0 SEEN, Urine Bacteria 0 SEEN, Hyaline Casts 0-5 SEEN, Fine Granular Casts 0-5 SEEN, Urine Mucus 0 SEEN 08/03/24 11:30: Sodium 138, Potassium 3.7, Chloride 103, Carbon Dioxide 23.8, Anion Gap 11, BUN 15, Creatinine 0.59 L, Estim Creat Clear Calc 47.34 L, Est GFR (MDRD) Non-Af 93, BUN/Creatinine Ratio 25.1 H, Glucose 103 H, Calcium 9.3 Microbiology: Microbiology 07/27/24 09:50 Stool Stool Occult Blood (JAZ) - Final D/C Instructions Discharge Diet: No restrictions Weight Bearing Status: Partial weight bearing (Right lower extremity.) Call your doctor if your incision/area has: Continuous Slow Oozing, Sudden Increased Bleeding, Increased Pain/ Swelling, Increased Redness, Foul Smelling Discharge and Swelling at the incision site Call your doctor if you observe: Fever of 101 or Higher, Inability to have a bowel movement, Shortness of breath, Dizziness, Fainting spells, Swelling in the ankles, Chest pain, Increased palpitations (irregular heartbeat), Calf discomfort and Uncontrolled pain Suture Line Care: Avoid Pulling/Pushing and Avoid Pinching/Bending Cleanse incision/area with: Soap & Water and - (Keep incision open to air. May apply a dry dressing if desired. No tub baths. ) DC O2, CPAP, BIPAP Needs Home O2 Discharge instructions: No Pending Tests Upon Discharge: none Please Follow Up With: Robin Vargas MD When: 08/05/24. You will also be following up with Dr. Mckeon for primary care. Appts are listed later in this document. Meaningful Use Info Meaningful Use Meaningful Use Diagnoses (Choose all that apply): None applicable Ischemic Stroke Statin Dosing Therapy Reference: STATIN DOSE THERAPY REFERENCE: * Patients > 75 years receive moderate or high dose statin therapy. * Patients 75 years or YOUNGER should receive HIGH intensity statin dose unless contraindicated. You will be required to document reason for non-treatment if statin daily dose does not meet guidelines. HIGH DOSE STATIN THERAPY DAILY Atorvastatin > than or = to 40 mg Rosuvastatin > than or = to 20 mg Amlodipine + Atorvastatin > than or = to 2.5/40 mg Ezetimibe + Simvastatin 10/80 mg Simvastatin 80mg Discharge Plan Admission Admit Date/Time: 07/21/24 18:15 Primary Reason for Your Visit: Debility secondary to nontraumatic right femoral neck fracture. Attending Provider: Neema Walker Primary Care Provider: Lyubov An Consulting Providers: Tej Fried Chi Instructions Patient Instructions: Caring for Your Incision Additional Instructions / Restrictions: 1. Appts have been scheduled for you to follow up with Dr. Vargas (orthopedic surgery) and with Dr. Mckeon (new PCP). 2. The fracture of the R hip was non-traumatic. With your hx of anal cancer this raises a concern for possible metastatic bone disease. You could also have severe osteoporosis. I think it would be a good idea to have a bone density study to see if you have osteoporosis. I am giving you a requisition to obtain a DEXA (this is a bone density test). You were started on Fosamax in the hospital and I am going to continue this when you go home. The biggest side effect of this drug is reflux/heartburn. Your vitamin D level is normal so keep taking the Vitamin D supplement daily that you were taking at home. 4. Tylenol seems to work to control your pain. You have been getting 2 500 mg Tylenol tablets every 8 hours in the hospital. You have taken a few doses of Oxycodone while on rehab. People tend to do more once they get home so I am sending you home with a prescription for some Oxycodone to have on hand in the event that you need something stronger than Tylenol for pain. Oxycodone can cause constipation. If you are having problems with constipation I suggest taking Metamucil or Miralax.....these are stool softeners that can be purchased at any pharmacy without a prescription. You could also increase the fiber in your diet. 5. You are on a medication called Rivaroxaban (also called Xarelto) while in the hospital. You are at increased risk for blood clots in the legs for about 1 month after hip surgery. You can take this medication once a day. If you choose not to take this medication then you could take a baby aspirin twice a day until 08/22/24 to help prevent clots. 6. If you have questions after you leave rehab please do not hesitate to call me at [phone]. Discharge Orders/Prescriptions Prescriptions: Continued ibuprofen 200 mg capsule 200 mg PO Q6H PRN (Reason: pain) vitamin D3-vitamin K2 125-90 mcg capsule 1 cap PO DAILY cod liver oil Oil 15 ml PO DAILY multivitamin Tablet 1 tab PO DAILY milk thistle 150 mg capsule 150 mg PO DAILY Rx Instructions: give with meal/snack acetaminophen 500 mg Tablet 1,000 mg PO Q8 alendronate 70 mg Tablet 70 mg PO Q7D@0700 Qty: 4 0RF Xarelto 10 mg Tablet 10 mg PO DINNER Qty: 18 0RF Discontinued oxycodone 5 mg Tablet 2.5 mg PO Q4H PRN PRN (Reason: Pain Score 1-10) 3 Days Qty: 7 0RF Other Ambulatory Orders: Dexa Bone Density Study (Routine) Timeframe: 1 Month Facility: [facility] - Location: [facility] Ordered By: Dr. Neema Walker Referrals / Follow Up: Jonah Mckeon MD [Med Staff - Active Staff] - 08/06/24 2:30 pm Robin Vargas MD [Med Staff - Active Staff] - 08/05/24 10:30 am Disposition Disposition (needs filled in before D/C Order can be placed): Home Health Service Charges/Coding Visit Charges Inpatient E&M: 55653 Disch Hosp
[2024-08-03] MEDS: Rivaroxaban 10 MG Tablet PO (17:20)
[2024-08-03 18:00] VITALS: BP 111/58; PULSE 108; RESP 18; TEMP 36.7; O2SAT 94
[2024-08-03] MEDS: Doxepin Hydrochloride 10 MG Capsule PO (20:59)
[2024-08-03] MEDS: Senna/Docusate Sodium 1 Tablet 2 TABLET PO (20:59)
[2024-08-04] MEDS: Acetaminophen 500 MG Tablet 1000 MG PO (05:56)
[2024-08-04 06:00] VITALS: BP 97/40; PULSE 89; RESP 16; TEMP 37.2; O2SAT 96; BMI 16.4
[2024-08-04] MEDS: Cholecalciferol (Vit D3) 125 MCG CAPSULE (5,000 UNITS) PO (08:10)
[2024-08-04] MEDS: Senna/Docusate Sodium 1 Tablet 2 TABLET PO (08:10)
[2024-08-04] MEDS: Multivitamins,Therapeutic Tablet 1 TABLET PO (08:11)
[2024-08-04 13:01] VITALS: BP 125/62; PULSE 115; RESP 18; TEMP 36.7; O2SAT 95
== END 2024-08-04 13:03 | disposition home health service (06) | DRG 560 ==
PROVIDERS: Admitting Provider Family Medicine Geriatric Medicine; PCP Internal Medicine; Visit Provider Internal Medicine
DX: M84.40XD Pathological fracture, unspecified site, subsequent encounter for fracture with routine healing (principal); D62 Acute posthemorrhagic anemia; Z68.1 Body mass index [BMI] 19.9 or less, adult; I95.1 Orthostatic hypotension; F17.200 Nicotine dependence, unspecified, uncomplicated; E55.9 Vitamin D deficiency, unspecified; D75.839 Thrombocytosis, unspecified; E83.39 Other disorders of phosphorus metabolism; S32.511D Fracture of superior rim of right pubis, subsequent encounter for fracture with routine healing; G47.00 Insomnia, unspecified; M81.0 Age-related osteoporosis without current pathological fracture; Z85.048 Personal history of other malignant neoplasm of rectum, rectosigmoid junction, and anus; Z92.21 Personal history of antineoplastic chemotherapy; Z92.3 Personal history of irradiation; X58.XXXD Exposure to other specified factors, subsequent encounter; Z79.899 Other long term (current) drug therapy; Z96.641 Presence of right artificial hip joint; R63.6 Underweight
CPT/HCPCS: 36415; 80048; 80053; 81001; 82274; 83735; 84100; 85025; 97110; 97116; 97162; 97166; 97530; 97535; 97542; 97802; 97803; 99406; A4216

== ENCOUNTER → 2024-09-02 | Outpatient (CLI) | payer MEDICARE, MEDICAID, SELFPAY ==
--- NOTE | 2024-09-02 07:40 | BD_ITS ---
PROCEDURE: DEXA BONE DENSITY STUDY 09/02/2024 REASON FOR EXAM: F, age 74 y/o . Postmenopausal. TECHNIQUE: DXA scan of sites with data reported below. REFERENCE LINKS: [facility] Adult Positions COMPARISON: None FINDINGS: BMD and T-SCORES Lumbar spine: 0.885 g/cm2, T-score -1.4 Levels: L1 through L4 Left femoral neck: 0.623 g/cm2, T-score -2.0 Femoral neck comparison data not recommended for monitoring change. Left total hip: 0.662 g/cm2, T-score -2.3 The World Health Organization has defined the following categories based on bone density: Normal bone density: T-score equal to or greater than -1.0 Osteopenia: T-score between -1.0 and -2.5 Osteoporosis: T-score equal to or less than -2.5 The patient does meet the pharmacological treatment recommendations for prevention of osteoporosis. BD/Dexa Bone Density Study IMPRESSION: OSTEOPENIA. Recommend follow-up as clinically warranted. Reading Location: [place] [id number]
== END | disposition home or self-care (01) ==
LOC: OPBD 07:39
PROVIDERS: PCP Internal Medicine; Referring Provider Internal Medicine; Visit Provider Internal Medicine
DX: Z78.0 Asymptomatic menopausal state (principal)
CPT/HCPCS: 77080